=== PATIENT | female | born 1955 | race Caucasian/White ===

== ENCOUNTER → 2019-11-20 09:55 | Outpatient (CLI) | payer BC, SELFPAY ==
[2019-11-20 10:44] LABS: INR 1.61 (0.9-1.1); Prothrombin Time 16.1 seconds (9.4-11.8)
[2019-11-20 11:13] LABS: Chloride 105 mmol/L (98-107)
[2019-11-20 11:14] LABS: Potassium 4.5 mmoL/L (3.5-5.1); Sodium 143 mmol/L (136-145)
[2019-11-20 11:17] LABS: Anion Gap 16.5 mEq/L (5-15); Blood Urea Nitrogen 24 mg/dl (7-17); Carbon Dioxide 26 mmol/L (22.0-30.0); Estimated Glomerular Filt Rate 50 ml/min (>60); GFR (African American) 61 ML/MIN (>60); Glucose 127 mg/dl (74-100)
== END ==
PROVIDERS: Visit Provider Physician Assistant
DX: R07.89 Other chest pain (principal); R06.00 Dyspnea, unspecified; M79.602 Pain in left arm; Z86.73 Personal history of transient ischemic attack (TIA), and cerebral infarction without residual deficits
CPT/HCPCS: 36415; 80048; 85610

== ENCOUNTER 2019-11-24 14:56 | Outpatient (CLI) | payer BC, SELFPAY | END 2019-11-24 16:26 | disposition home or self-care (01) | LOC: ACC 14:59 | PROVIDERS: PCP Nurse Practitioner Family; Visit Provider Physician Assistant | DX: Z79.01 Long term (current) use of anticoagulants (principal); I48.0 Paroxysmal atrial fibrillation | CPT/HCPCS: 85610; 99211; G0463 ==

== ENCOUNTER 2019-11-30 13:39 | Outpatient (CLI) | payer BC, SELFPAY | END 2019-11-30 14:19 | disposition home or self-care (01) | LOC: ACC 13:40 | PROVIDERS: PCP Nurse Practitioner Family; Visit Provider Physician Assistant | DX: Z51.81 Encounter for therapeutic drug level monitoring (principal); Z79.01 Long term (current) use of anticoagulants | CPT/HCPCS: 85610; 99211; G0463 ==

== ENCOUNTER 2019-12-08 14:26 | Outpatient (CLI) | payer BC, SELFPAY ==
[2019-12-08 15:23] LABS: PHA INR Fingerstick 1.8 (0.9-1.1)
== END 2019-12-08 15:24 | disposition home or self-care (01) ==
LOC: ACC 14:27
PROVIDERS: PCP Nurse Practitioner Family; Visit Provider Physician Assistant
DX: Z51.81 Encounter for therapeutic drug level monitoring (principal); Z79.01 Long term (current) use of anticoagulants
CPT/HCPCS: 85610; 99211; G0463

== ENCOUNTER 2019-12-17 14:46 | Outpatient (CLI) | payer BC, SELFPAY ==
[2019-12-17 15:28] LABS: PHA INR Fingerstick 2.1 (0.9-1.1)
== END 2019-12-17 15:30 | disposition home or self-care (01) ==
LOC: ACC 14:47
PROVIDERS: PCP Nurse Practitioner Family; Visit Provider Physician Assistant
DX: Z51.81 Encounter for therapeutic drug level monitoring (principal); Z79.01 Long term (current) use of anticoagulants; I48.0 Paroxysmal atrial fibrillation
CPT/HCPCS: 85610; 99211; G0463

== ENCOUNTER → 2020-01-01 14:12 | Outpatient (CLI) | payer BC, SELFPAY ==
--- NOTE | 2020-01-01 14:34 | US_ITS ---
PROCEDURE: US KIDNEY CLINICAL INDICATION: HTN COMPARISON: No exams were available for comparison FINDINGS: The right kidney is [id number]. No hydronephrosis, cortical thinning, or renal mass or perinephric fluid collection is evident. The left kidney is [id number]. No hydronephrosis, cortical thinning, or renal mass or perinephric fluid collection is evident. IMPRESSION: Unremarkable bilateral renal ultrasound Dictated by: Milton Bennett MD 01/01/2020 16:21 Milton Bennett MD in [place] 01/01/2020 16:21
== END ==
PROVIDERS: PCP Nurse Practitioner Family; Visit Provider Urology
DX: Z51.81 Encounter for therapeutic drug level monitoring (principal); Z79.01 Long term (current) use of anticoagulants; I48.0 Paroxysmal atrial fibrillation
CPT/HCPCS: 76770

== ENCOUNTER → 2020-01-12 12:27 | Outpatient (CLI) | payer BC, SELFPAY ==
[2020-01-12 15:39] LABS: PHA INR Fingerstick 1.9 (0.9-1.1)
== END | disposition home or self-care (01) ==
PROVIDERS: PCP Nurse Practitioner Family; Visit Provider Physician Assistant
DX: Z51.81 Encounter for therapeutic drug level monitoring (principal); Z79.01 Long term (current) use of anticoagulants; I48.0 Paroxysmal atrial fibrillation
CPT/HCPCS: 85610; 99211; G0463

== ENCOUNTER → 2020-01-18 13:59 | Outpatient (CLI) | payer BC, SELFPAY ==
--- NOTE | 2020-01-18 14:09 | XR_ITS ---
PROCEDURE: XR MULTIPLE SPINE 4-5V CLINICAL INDICATION: MUSCULOSKELETAL BACK PAIN Midline back pain COMPARISON: No exams were available for comparison FINDINGS: There is mild thoracic curvature convex right. Degenerative changes are present in the midthoracic spine with mild endplate osteophyte formation. There is mild kyphosis. No acute fracture or dislocation. Mild lumbar scoliosis convex left. Other findings: No fracture or dislocation. There is mild degenerative disc disease at L1-L2 and L2-L3. IMPRESSION: Thoracolumbar scoliosis with degenerative changes Dictated by: Milton Bennett MD 01/18/2020 14:42 Milton Bennett MD in [place] 01/18/2020 14:42
== END ==
PROVIDERS: PCP Nurse Practitioner Family; Visit Provider Nurse Practitioner Family
DX: M54.6 Pain in thoracic spine (principal); M54.5 Low back pain
CPT/HCPCS: 72083

== ENCOUNTER 2020-02-02 13:50 | Outpatient (CLI) | payer BC, SELFPAY ==
[2020-02-02 14:54] LABS: PHA INR Fingerstick 2.2 (0.9-1.1)
== END 2020-02-02 14:57 | disposition home or self-care (01) ==
LOC: ACC 13:51
PROVIDERS: PCP Nurse Practitioner Family; Visit Provider Physician Assistant
DX: Z51.81 Encounter for therapeutic drug level monitoring (principal); Z79.01 Long term (current) use of anticoagulants; I48.0 Paroxysmal atrial fibrillation
CPT/HCPCS: 85610; 99211; G0463

== ENCOUNTER 2020-03-15 14:13 | Outpatient (CLI) | payer BC, SELFPAY ==
[2020-03-15 15:31] LABS: PHA INR Fingerstick 2.4 (0.9-1.1)
== END 2020-03-15 15:33 | disposition home or self-care (01) ==
LOC: ACC 14:14
PROVIDERS: PCP Nurse Practitioner Family; Visit Provider Physician Assistant
DX: Z51.81 Encounter for therapeutic drug level monitoring (principal); Z79.01 Long term (current) use of anticoagulants; I48.0 Paroxysmal atrial fibrillation
CPT/HCPCS: 85610; 99211; G0463

== ENCOUNTER 2020-05-10 14:03 | Outpatient (CLI) | payer BC, SELFPAY | END 2020-05-10 15:08 | disposition home or self-care (01) | PROVIDERS: PCP Nurse Practitioner Family; Visit Provider Physician Assistant | DX: Z51.81 Encounter for therapeutic drug level monitoring (principal); Z79.01 Long term (current) use of anticoagulants; I48.0 Paroxysmal atrial fibrillation | CPT/HCPCS: 85610; 99211; G0463 ==

== ENCOUNTER 2020-06-21 13:55 | Outpatient (CLI) | payer BC, SELFPAY ==
[2020-06-21 16:17] LABS: PHA INR Fingerstick 1.8 (0.9-1.1)
== END 2020-06-21 16:19 | disposition home or self-care (01) ==
LOC: ACC 13:56
PROVIDERS: PCP Nurse Practitioner Family; Visit Provider Physician Assistant
DX: Z51.81 Encounter for therapeutic drug level monitoring (principal); Z79.01 Long term (current) use of anticoagulants; I48.0 Paroxysmal atrial fibrillation
CPT/HCPCS: 85610; 99211; G0463

== ENCOUNTER 2020-07-12 13:24 | Outpatient (CLI) | payer BC, SELFPAY ==
[2020-07-12 14:48] LABS: PHA INR Fingerstick 2.1 (0.9-1.1)
== END 2020-07-12 15:04 | disposition home or self-care (01) ==
LOC: ACC 13:25
PROVIDERS: PCP Nurse Practitioner Family; Visit Provider Physician Assistant
DX: Z51.81 Encounter for therapeutic drug level monitoring (principal); Z79.01 Long term (current) use of anticoagulants; I48.0 Paroxysmal atrial fibrillation
CPT/HCPCS: 85610; 99211; G0463

== ENCOUNTER 2020-08-09 13:56 | Outpatient (CLI) | payer BC, SELFPAY ==
[2020-08-09 15:15] LABS: PHA INR Fingerstick 2.2 (0.9-1.1)
== END 2020-08-09 15:16 | disposition home or self-care (01) ==
LOC: ACC 13:57
PROVIDERS: PCP Nurse Practitioner Family; Visit Provider Physician Assistant
DX: Z51.81 Encounter for therapeutic drug level monitoring (principal); Z79.01 Long term (current) use of anticoagulants; I48.0 Paroxysmal atrial fibrillation
CPT/HCPCS: 85610; 99211; G0463

== ENCOUNTER 2020-09-20 13:51 | Outpatient (CLI) | payer BC, SELFPAY ==
[2020-09-20 16:00] LABS: PHA INR Fingerstick 1.9 (0.9-1.1)
== END 2020-09-20 16:32 | disposition home or self-care (01) ==
PROVIDERS: PCP Nurse Practitioner Family; Visit Provider Physician Assistant
DX: Z51.81 Encounter for therapeutic drug level monitoring (principal); Z79.01 Long term (current) use of anticoagulants; I48.0 Paroxysmal atrial fibrillation
CPT/HCPCS: 85610; 99211; G0463

== ENCOUNTER 2020-10-18 13:47 | Outpatient (CLI) | payer BC, SELFPAY ==
[2020-10-18 16:37] LABS: PHA INR Fingerstick 2.3 (0.9-1.1)
== END 2020-10-18 16:41 | disposition home or self-care (01) ==
LOC: ACC 13:48
PROVIDERS: PCP Nurse Practitioner Family; Visit Provider Physician Assistant
DX: Z51.81 Encounter for therapeutic drug level monitoring (principal); Z79.01 Long term (current) use of anticoagulants; I48.0 Paroxysmal atrial fibrillation
CPT/HCPCS: 85610; 99211; G0463

== ENCOUNTER 2020-11-23 14:21 | Outpatient (CLI) | payer BC, SELFPAY ==
[2020-11-23 16:08] LABS: PHA INR Fingerstick 1.8 (0.9-1.1)
== END 2020-11-23 16:02 | disposition home or self-care (01) ==
PROVIDERS: PCP Nurse Practitioner Family; Visit Provider Physician Assistant
DX: Z51.81 Encounter for therapeutic drug level monitoring (principal); Z79.01 Long term (current) use of anticoagulants; I48.0 Paroxysmal atrial fibrillation
CPT/HCPCS: 85610; 99211; G0463

== ENCOUNTER 2020-12-21 14:48 | Outpatient (CLI) | payer BC, SELFPAY ==
[2020-12-21 16:11] LABS: PHA INR Fingerstick 2.5 (0.9-1.1)
== END 2020-12-21 16:15 | disposition home or self-care (01) ==
LOC: ACC 14:49
PROVIDERS: PCP Nurse Practitioner Family; Visit Provider Physician Assistant
DX: Z51.81 Encounter for therapeutic drug level monitoring (principal); Z79.01 Long term (current) use of anticoagulants; I48.0 Paroxysmal atrial fibrillation
CPT/HCPCS: 85610; 99211; G0463

== ENCOUNTER 2021-02-02 14:56 | Outpatient (CLI) | payer BC, SELFPAY ==
[2021-02-02 15:32] LABS: PHA INR Fingerstick 1.9 (0.9-1.1)
== END 2021-02-02 15:33 | disposition home or self-care (01) ==
LOC: ACC 14:56
PROVIDERS: PCP Nurse Practitioner Family; Visit Provider Physician Assistant
DX: Z51.81 Encounter for therapeutic drug level monitoring (principal); Z79.01 Long term (current) use of anticoagulants; I48.0 Paroxysmal atrial fibrillation
CPT/HCPCS: 85610; 99211; G0463

== ENCOUNTER 2021-03-01 13:52 | Outpatient (CLI) | payer BC, SELFPAY ==
[2021-03-01 15:43] LABS: PHA INR Fingerstick 1.6 (0.9-1.1)
== END 2021-03-01 15:46 | disposition home or self-care (01) ==
LOC: ACC 13:54
PROVIDERS: PCP Nurse Practitioner Family; Visit Provider Physician Assistant
DX: Z51.81 Encounter for therapeutic drug level monitoring (principal); Z79.01 Long term (current) use of anticoagulants; I48.0 Paroxysmal atrial fibrillation
CPT/HCPCS: 85610; 99211; G0463

== ENCOUNTER 2021-03-28 14:52 | Outpatient (CLI) | payer BC, SELFPAY ==
[2021-03-28 15:22] LABS: PHA INR Fingerstick 2.1 (0.9-1.1)
== END 2021-03-28 15:27 | disposition home or self-care (01) ==
LOC: ACC 14:54
PROVIDERS: PCP Nurse Practitioner Family; Visit Provider Physician Assistant
DX: Z51.81 Encounter for therapeutic drug level monitoring (principal); Z79.01 Long term (current) use of anticoagulants; I48.0 Paroxysmal atrial fibrillation
CPT/HCPCS: 85610; 99211; G0463

== ENCOUNTER 2021-04-05 09:23 | Outpatient (CLI) | payer BC, SELFPAY ==
[2021-04-05 09:48] LABS: PHA INR Fingerstick 2.4 (0.9-1.1)
== END 2021-04-05 15:23 | disposition home or self-care (01) ==
LOC: ACC 09:25
PROVIDERS: PCP Nurse Practitioner Family; Visit Provider Physician Assistant
DX: Z51.81 Encounter for therapeutic drug level monitoring (principal); Z79.01 Long term (current) use of anticoagulants; I48.0 Paroxysmal atrial fibrillation
CPT/HCPCS: 85610; 99211; G0463

== ENCOUNTER 2021-04-25 15:17 | Outpatient (CLI) | payer BC, SELFPAY ==
[2021-04-25 16:45] LABS: PHA INR Fingerstick 2.3 (0.9-1.1)
== END 2021-04-25 16:44 | disposition home or self-care (01) ==
PROVIDERS: PCP Nurse Practitioner Family; Visit Provider Physician Assistant
DX: Z51.81 Encounter for therapeutic drug level monitoring (principal); Z79.01 Long term (current) use of anticoagulants; I48.0 Paroxysmal atrial fibrillation
CPT/HCPCS: 85610; 99211; G0463

== ENCOUNTER 2021-06-06 14:51 | Outpatient (CLI) | payer BC, SELFPAY | END 2021-06-06 15:43 | disposition home or self-care (01) | LOC: ACC 14:52 | PROVIDERS: PCP Nurse Practitioner Family; Visit Provider Physician Assistant | DX: Z51.81 Encounter for therapeutic drug level monitoring (principal); Z79.01 Long term (current) use of anticoagulants; I48.0 Paroxysmal atrial fibrillation | CPT/HCPCS: 85610; 99211; G0463 ==

== ENCOUNTER 2021-07-04 12:01 | Outpatient (CLI) | payer BC, SELFPAY ==
[2021-07-04 15:15] LABS: PHA INR Fingerstick 2.4 (0.9-1.1)
== END 2021-07-04 15:35 | disposition home or self-care (01) ==
LOC: ACC 12:02
PROVIDERS: PCP Nurse Practitioner Family; Visit Provider Physician Assistant
DX: Z51.81 Encounter for therapeutic drug level monitoring (principal); Z79.01 Long term (current) use of anticoagulants; I48.0 Paroxysmal atrial fibrillation
CPT/HCPCS: 85610; 99211; G0463

== ENCOUNTER → 2021-07-24 14:54 | Outpatient (CLI) | payer BC, SELFPAY ==
--- NOTE | 2021-07-24 15:05 | XR_ITS ---
FINAL REPORT CLINICAL HISTORY: DORSALGIA,UNSPECIFIED OTHER CHRONIC PAIN FINDINGS: AP, lateral, and oblique views of the lumbar spine were obtained. There is no acute fracture or acute malalignment. Vertebral body height is preserved. Multilevel degenerative disc disease is most pronounced at L2-L3. No acute paraspinal abnormality is identified. IMPRESSION: No acute osseous abnormality of the lumbar spine. Reviewed, Interpreted and Dictated by Helena Yuan MD Transcribed by Lazaro Lilly Authenticated by Helena Yuan MD on 07/24/2021 05:04:34 PM [facility]
--- NOTE | 2021-07-24 15:05 | XR_ITS ---
FINAL REPORT CLINICAL HISTORY: DORSALGIA, UNSPECIFIED OTHER CHRONIC PAIN FINDINGS: AP and lateral views of the thoracic spine were obtained. There is no prior exam for comparison. There is very mild dextroscoliosis. There is no acute fracture or acute malalignment. There is multilevel degenerative disc disease. The paraspinal soft tissues are normal. IMPRESSION: No acute osseous abnormality of the thoracic spine. Reviewed, Interpreted and Dictated by Helena Yuan MD Transcribed by Lazaro Lilly Authenticated by Helena Yuan MD on 07/24/2021 05:05:10 PM [facility]
== END ==
PROVIDERS: PCP Nurse Practitioner Family; Visit Provider Nurse Practitioner Family
DX: M54.6 Pain in thoracic spine (principal); M54.50 Low back pain, unspecified
CPT/HCPCS: 72070; 72110

== ENCOUNTER 2021-08-15 14:46 | Outpatient (CLI) | payer MEDICARE, SELFPAY ==
[2021-08-15 15:24] LABS: PHA INR Fingerstick 2.4 (0.9-1.1)
== END 2021-08-15 16:15 | disposition home or self-care (01) ==
LOC: ACC 14:48
PROVIDERS: PCP Nurse Practitioner Family; Visit Provider Physician Assistant
DX: Z51.81 Encounter for therapeutic drug level monitoring (principal); Z79.01 Long term (current) use of anticoagulants; I48.0 Paroxysmal atrial fibrillation
CPT/HCPCS: 85610; 99211; G0463

== ENCOUNTER 2021-09-26 14:44 | Outpatient (CLI) | payer MEDICARE, SELFPAY ==
[2021-09-26 16:13] LABS: PHA INR Fingerstick 2.6 (0.9-1.1)
== END 2021-09-26 16:15 | disposition home or self-care (01) ==
LOC: ACC 14:45
PROVIDERS: Visit Provider Physician Assistant
DX: Z51.81 Encounter for therapeutic drug level monitoring (principal); Z79.01 Long term (current) use of anticoagulants; I48.0 Paroxysmal atrial fibrillation
CPT/HCPCS: 85610; 99211; G0463

== ENCOUNTER 2021-11-07 14:43 | Outpatient (CLI) | payer MEDICARE, SELFPAY ==
[2021-11-07 15:13] LABS: PHA INR Fingerstick 2.7 (0.9-1.1)
== END 2021-11-07 15:15 ==
LOC: ACC 14:44
PROVIDERS: PCP Family Medicine; Visit Provider Physician Assistant
DX: Z51.81 Encounter for therapeutic drug level monitoring (principal); Z79.01 Long term (current) use of anticoagulants; I48.0 Paroxysmal atrial fibrillation
CPT/HCPCS: 85610; 99211; G0463

== ENCOUNTER → 2021-12-13 12:01 | Outpatient (CLI) | payer MEDICARE, SELFPAY ==
[2021-12-13 19:58] LABS: Basophils # 0.1 K/mm3 (0-0.2); Basophils % 0.9 % (0.1-2.0); Eosinophils # 0.3 K/mm3 (0.0-0.4); Eosinophils % 4.5 % (0.1-12.0); Hematocrit 36.4 % (37.0-47.0); Hemoglobin 11.5 g/dL (12.2-16.2); Lymphocytes # 2.3 K/mm3 (0.7-4.5); Lymphocytes % 32.3 % (10-50); Mean Corpuscular HGB Conc 31.8 g/dL (31.8-35.4); Mean Corpuscular Hemoglobin 25.4 pg (27.0-31.2); Mean Corpuscular Volume 79.9 fl (81-99); Mean Platelet Volume 8.4 fl (7.4-10.4); Monocytes # 0.4 K/mm3 (0.1-1.0); Monocytes % 5.2 % (1.7-9.3); Neutrophils # 4.1 K/mm3 (1.8-7.8); Neutrophils % 57.1 % (37.0-80.0); Platelet Count 535 K/mm3 (142-424); Red Blood Count 4.55 M/mm3 (4.20-5.40); Red Cell Distribution Width 16.8 % (11.5-17.5); White Blood Count 7.2 K/mm3 (4.8-10.8)
[2021-12-13 20:02] LABS: Alanine Aminotransferase 39 U/L (12-78); Albumin/Globulin Ratio 1.3 (1.1-1.8); Alkaline Phosphatase 127 U/L (38-126); Anion Gap 16.3 mEq/L (5-15); Aspartate Amino Transferase 42 U/L (14-36); Bilirubin,Total 0.2 mg/dl (0.2-1.3); Blood Urea Nitrogen 20 mg/dl (7-17); Calcium 9.1 mg/dl (8.4-10.2); Carbon Dioxide 23 mmol/L (22.0-30.0); Chloride 104 mmol/L (98-107); Cholesterol 225 mg/dl (140-200); Estimated Glomerular Filt Rate 56 ml/min (>60); GFR (African American) 67 ML/MIN (>60); Globulin 3.1 g/dL (1.3-3.2); Glucose 121 mg/dl (74-100); HDL Cholesterol 32 mg/dl (40-60); Potassium 4.3 mmoL/L (3.5-5.1); Sodium 139 mmol/L (136-145); Total Protein,Serum 7.1 g/dl (6.3-8.2); Triglycerides 305 mg/dl (30-150); VLDL Cholesterol 61 mg/dL (0-40)
[2021-12-13 20:17] LABS: 25-OH Vitamin D, Total 26.7 ng/mL (30-100)
[2021-12-13 20:18] LABS: Direct LDL Cholesterol 145.48 mg/dL (100-129)
[2021-12-13 20:26] LABS: Microalbumin/Creatinine Ratio 32.9
[2021-12-13 20:32] LABS: Thyroid Stimulating Hormone 0.62 uIU/mL (0.465-4.68)
[2021-12-13 20:35] LABS: Creatinine,Urine Random 82 mg/dL (Not Estab.)
[2021-12-13 20:59] LABS: Iron 89 ug/dL (37-170)
[2021-12-13 21:08] LABS: Total Iron Binding Capacity 597 ug/dL (265-497)
[2021-12-13 21:25] LABS: Hemoglobin A1C 6.5 % (4.0-6.0)
== END ==
PROVIDERS: PCP Family Medicine; Visit Provider Family Medicine
DX: E11.9 Type 2 diabetes mellitus without complications (principal); R53.83 Other fatigue; E55.9 Vitamin D deficiency, unspecified; I10 Essential (primary) hypertension; Z00.00 Encounter for general adult medical examination without abnormal findings
CPT/HCPCS: 80053; 80061; 82043; 82306; 82570; 83036; 83540; 83550; 84443; 85025

== ENCOUNTER 2021-12-19 14:44 | Outpatient (CLI) | payer MEDICARE, SELFPAY ==
[2021-12-20 11:00] LABS: PHA INR Fingerstick 2.4 (0.9-1.1)
== END 2021-12-20 11:03 ==
LOC: ACC 14:46
PROVIDERS: PCP Family Medicine; Visit Provider Physician Assistant
DX: Z51.81 Encounter for therapeutic drug level monitoring (principal); Z79.01 Long term (current) use of anticoagulants; I48.0 Paroxysmal atrial fibrillation
CPT/HCPCS: 85610; 99211; G0463

== ENCOUNTER 2022-01-30 14:45 | Outpatient (CLI) | payer MEDICARE, SELFPAY ==
[2022-01-30 15:37] LABS: PHA INR Fingerstick 2.4 (0.9-1.1)
== END 2022-01-30 15:39 ==
LOC: ACC 14:46
PROVIDERS: PCP Family Medicine; Visit Provider Physician Assistant
DX: Z51.81 Encounter for therapeutic drug level monitoring (principal); Z79.01 Long term (current) use of anticoagulants; I48.0 Paroxysmal atrial fibrillation
CPT/HCPCS: 85610; 99211; G0463

== ENCOUNTER 2022-03-14 14:52 | Outpatient (CLI) | payer MEDICARE, SELFPAY ==
[2022-03-14 15:48] LABS: PHA INR Fingerstick 2.3 (0.9-1.1)
== END 2022-03-14 15:56 ==
LOC: ACC 14:53
PROVIDERS: PCP Family Medicine; Visit Provider Physician Assistant
DX: Z51.81 Encounter for therapeutic drug level monitoring (principal); Z79.01 Long term (current) use of anticoagulants
CPT/HCPCS: 85610; 99211; G0463

== ENCOUNTER → 2022-04-02 06:48 | Outpatient (CLI) | payer MEDICARE, SELFPAY ==
[2022-04-02 17:14] LABS: Hemoglobin A1C 6.5 % (4.0-6.0)
[2022-04-02 17:40] LABS: Creatinine,Urine Random 45 mg/dL (Not Estab.)
[2022-04-02 17:49] LABS: Microalbumin < 6.000 mg/L (0-16.7)
== END ==
PROVIDERS: PCP Family Medicine; Visit Provider Family Medicine
DX: E11.9 Type 2 diabetes mellitus without complications (principal); Z79.84 Long term (current) use of oral hypoglycemic drugs
CPT/HCPCS: 82043; 82570; 83036

== ENCOUNTER 2022-04-25 14:43 | Outpatient (CLI) | payer MEDICARE, SELFPAY | END 2022-04-25 15:29 | LOC: ACC 14:45 | PROVIDERS: PCP Family Medicine; Visit Provider Physician Assistant | DX: Z51.81 Encounter for therapeutic drug level monitoring (principal); Z79.01 Long term (current) use of anticoagulants; I48.0 Paroxysmal atrial fibrillation | CPT/HCPCS: 85610; 99211; G0463 ==

== ENCOUNTER 2022-06-13 14:50 | Outpatient (CLI) | payer MEDICARE, SELFPAY ==
[2022-06-13 15:28] LABS: PHA INR Fingerstick 2.4 (0.9-1.1)
== END 2022-06-13 15:40 ==
LOC: ACC 14:50
PROVIDERS: PCP Family Medicine; Visit Provider Physician Assistant
DX: Z51.81 Encounter for therapeutic drug level monitoring (principal); Z79.01 Long term (current) use of anticoagulants; I48.0 Paroxysmal atrial fibrillation
CPT/HCPCS: 85610; 99211; G0463

== ENCOUNTER 2022-07-25 14:45 | Outpatient (CLI) | payer MEDICARE, SELFPAY ==
[2022-07-25 15:03] LABS: PHA INR Fingerstick 2.8 (0.9-1.1)
== END 2022-07-25 15:04 ==
LOC: ACC 14:46
PROVIDERS: PCP Family Medicine; Visit Provider Physician Assistant
DX: Z51.81 Encounter for therapeutic drug level monitoring (principal); Z79.01 Long term (current) use of anticoagulants; I48.0 Paroxysmal atrial fibrillation
CPT/HCPCS: 85610; 99211; G0463

== ENCOUNTER → 2022-08-08 09:15 | Outpatient (CLI) | payer MEDICARE, SELFPAY ==
[2022-08-08 17:40] LABS: Basophils % 0.4 % (0.1-2.0); Eosinophils # 0.3 K/mm3 (0.0-0.4); Eosinophils % 3.6 % (0.1-12.0); Hematocrit 42.2 % (37.0-47.0); Hemoglobin 13.7 g/dL (12.2-16.2); Lymphocytes % 26.5 % (10-50); Mean Corpuscular HGB Conc 32.4 g/dL (31.8-35.4); Mean Corpuscular Hemoglobin 29.7 pg (27.0-31.2); Mean Corpuscular Volume 91.8 fl (81-99); Mean Platelet Volume 9.1 fl (7.4-10.4); Monocytes # 0.4 K/mm3 (0.1-1.0); Monocytes % 4.8 % (1.7-9.3); Neutrophils # 4.9 K/mm3 (1.8-7.8); Neutrophils % 64.7 % (37.0-80.0); Platelet Count 434 K/mm3 (142-424); Red Cell Distribution Width 14.2 % (11.5-17.5); White Blood Count 7.5 K/mm3 (4.8-10.8)
[2022-08-08 18:15] LABS: Alanine Aminotransferase 30 U/L (12-78); Albumin Level 4.2 g/dl (3.5-5.0); Albumin/Globulin Ratio 1.4 (1.1-1.8); Alkaline Phosphatase 92 U/L (38-126); Anion Gap 16.6 mEq/L (5-15); Aspartate Amino Transferase 37 U/L (14-36); Bilirubin,Total 0.2 mg/dl (0.2-1.3); Blood Urea Nitrogen 26 mg/dl (7-17); Calcium 9.3 mg/dl (8.4-10.2); Carbon Dioxide 24 mmol/L (22.0-30.0); Chloride 105 mmol/L (98-107); Chol/HDL Ratio 8.2 (1-3.5); Cholesterol 246 mg/dl (140-200); Estimated Glomerular Filt Rate 56 ml/min (>60); GFR (African American) 67 ML/MIN (>60); Globulin 3.1 g/dL (1.3-3.2); Glucose 110 mg/dl (74-100); HDL Cholesterol 30 mg/dl (40-60); Potassium 4.6 mmoL/L (3.5-5.1); Sodium 141 mmol/L (136-145); Total Protein,Serum 7.3 g/dl (6.3-8.2); Triglycerides 379 mg/dl (30-150); VLDL Cholesterol 76 mg/dL (0-40)
[2022-08-08 18:27] LABS: Direct LDL Cholesterol 142.37 mg/dL (100-129)
[2022-08-08 18:46] LABS: Thyroid Stimulating Hormone 1.56 uIU/mL (0.465-4.68)
[2022-08-08 19:00] LABS: Hemoglobin A1C 5.8 % (4.0-6.0)
[2022-08-08 20:33] LABS: Microalbumin/Creatinine Ratio 11.6
[2022-08-08 20:43] LABS: Creatinine,Urine Random 59 mg/dL (Not Estab.)
== END ==
PROVIDERS: PCP Family Medicine; Visit Provider Family Medicine
DX: E11.9 Type 2 diabetes mellitus without complications (principal); D64.9 Anemia, unspecified; E78.2 Mixed hyperlipidemia; I10 Essential (primary) hypertension
CPT/HCPCS: 80053; 80061; 82043; 82570; 83036; 84443; 85025

== ENCOUNTER 2022-09-05 14:59 | Outpatient (CLI) | payer MEDICARE, SELFPAY ==
[2022-09-05 16:02] LABS: PHA INR Fingerstick 2.5 (0.9-1.1)
== END 2022-09-05 16:08 ==
LOC: ACC 15:00
PROVIDERS: PCP Family Medicine; Visit Provider Physician Assistant
DX: Z79.01 Long term (current) use of anticoagulants (principal); Z51.81 Encounter for therapeutic drug level monitoring; I48.0 Paroxysmal atrial fibrillation
CPT/HCPCS: 85610; 99211; G0463

== ENCOUNTER 2022-10-17 14:52 | Outpatient (CLI) | payer MEDICARE, SELFPAY ==
[2022-10-17 15:29] LABS: PHA INR Fingerstick 2.7 (0.9-1.1)
== END 2022-10-17 15:32 ==
LOC: ACC 14:53
PROVIDERS: PCP Family Medicine; Visit Provider Physician Assistant
DX: Z79.01 Long term (current) use of anticoagulants (principal); Z51.81 Encounter for therapeutic drug level monitoring; I48.0 Paroxysmal atrial fibrillation
CPT/HCPCS: 85610; 99211; G0463

== ENCOUNTER 2022-11-28 14:54 | Outpatient (CLI) | payer MEDICARE, SELFPAY ==
[2022-11-28 16:12] LABS: PHA INR Fingerstick 2.6 (0.9-1.1)
== END 2022-11-28 16:17 ==
LOC: ACC 14:55
PROVIDERS: PCP Family Medicine; Visit Provider Physician Assistant
DX: Z79.01 Long term (current) use of anticoagulants (principal); Z51.81 Encounter for therapeutic drug level monitoring; I48.0 Paroxysmal atrial fibrillation
CPT/HCPCS: 85610; 99211; G0463

== ENCOUNTER → 2022-12-04 13:23 | Outpatient (CLI) | payer MEDICARE, SELFPAY ==
--- NOTE | 2022-12-04 13:29 | XR_ITS ---
FINAL REPORT CLINICAL HISTORY: Rt shoulder pain FINDINGS: 3 views of the right shoulder were obtained. There is no acute fracture or dislocation. There is mild AC joint degenerative change. There are no soft tissue abnormalities. IMPRESSION: No acute process. Reviewed, Interpreted and Dictated by Ivan Mcrae III, MD Transcribed by Lazaro Lilly Authenticated and [facility]
== END ==
PROVIDERS: PCP Family Medicine; Visit Provider Orthopaedic Surgery
DX: M25.511 Pain in right shoulder (principal)
CPT/HCPCS: 73030

== ENCOUNTER → 2022-12-21 13:40 | Outpatient (CLI) | payer MEDICARE, SELFPAY ==
--- NOTE | 2022-12-21 13:40 | MR_ITS ---
FINAL REPORT CLINICAL HISTORY: Rt Shoulder Pain. LIMITED ROM. WEAKNESS IN ARM. SYMPTOMS [id number] FINDINGS: Multiplanar MR imaging of the right shoulder was performed without contrast. Motion artifact is identified on all of the images. There is a focal full-thickness tear at the anterior footprint of the supraspinatus tendon measuring 7 mm in AP dimension. There is mild AC joint arthrosis. A small amount of fluid is seen in the subacromial/subdeltoid bursa. The glenoid labrum is intact. The long head of the biceps tendon is intact. Small glenohumeral joint effusion is seen. There is no evidence of fracture or dislocation. The musculature is intact. There is no evidence of soft tissue mass. IMPRESSION: Focal full-thickness tear of the supraspinatus tendon. Reviewed, Interpreted and Dictated by Ivan Mcrae III, MD Transcribed by Padmini Patricio Authenticated and [facility]
== END ==
PROVIDERS: PCP Family Medicine; Visit Provider Orthopaedic Surgery
DX: M25.511 Pain in right shoulder (principal)
CPT/HCPCS: 73221

== ENCOUNTER 2023-01-09 14:42 | Outpatient (CLI) | payer MEDICARE, SELFPAY ==
[2023-01-09 15:03] LABS: PHA INR Fingerstick 2.6 (0.9-1.1)
== END 2023-01-09 15:07 ==
LOC: ACC 14:43
PROVIDERS: PCP Family Medicine; Visit Provider Physician Assistant
DX: Z79.01 Long term (current) use of anticoagulants (principal); Z51.81 Encounter for therapeutic drug level monitoring; I48.0 Paroxysmal atrial fibrillation
CPT/HCPCS: 85610; 99211; G0463

== ENCOUNTER → 2023-01-16 06:49 | Outpatient (CLI) | payer MEDICARE, SELFPAY ==
[2023-01-16] VITALS (12 sets, daily range): BP systolic 121–179; BP diastolic 58–100; PULSE 63–76; RESP 17–19; TEMP 36.6; O2SAT 95–99; BMI 26.4
--- NOTE | 2023-01-16 06:50 | CT_ITS ---
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 A noncontrast coronary calcium scan was performed. A CT attenuation threshold of 130 Hounsfield units (HU) was used for the detection of calcium in contiguous voxels of 1 sq mm in area to be counted as individual lesions. Bolus tracking in the ascending aorta with a threshold of 180 HU was performed. Immediately afterwards, ECG synchronized cardiac CT was then performed from the cardiac base to apex using retrospective gating with ECG tube current modulation. A total of 85 mL of Isovue 370 mg/mL contrast medium was administered at 5 mL/sec followed by a saline flush using a biphasic injection protocol. A tube voltage of 120 KVp was used. The patient received the following medications prior to the cardiac CT. 100 mg of oral metoprolol 10 mg of intravenous metoprolol 0.8 mg of sublingual nitroglycerin The average heart rate at the time of acquisition was 64 bpm and regular. Image Reconstruction Transaxial images were reconstructed at 0.67 mm slide thickness. Data was reviewed interactively on an advanced workstation capable of 2 and 3-dimensional displays in all conventional reconstruction formats, including multiplanar reformations, maximum intensity projections, curved multiplanar reformations, and volume rendered reconstructions. When applicable, selected routine images describing the relevant coronary anatomy and pathology were saved and sent to PACS. Complications None Technical Quality Overall image quality was good. Coronary artery opacification was adequate. Total DLP (Dose-Length Product) is 1275.6 mGy-cm. The reported value represents the total of one or more individual components during the CT acquisition of this date and at this time, and as such, the same value may appear in more than one CT report depending on the interpreting/reporting physicians. COMPARISON None FINDINGS CT Coronary Calcium Scoring LMA (Left Main Artery) = 78 LAD (Left Anterior Descending) = 0 LCX (Left Coronary Circumflex) = 51 RCA (Right Coronary Artery) = 42 Total Calcium Score = 170 using the AJ-130 method. The observed calcium score of 170 is at 86th percentile for subjects of the same age, sex, and race/ethnicity. The interpretation of the calcium heart score is based on the following continuum*: 0 = no calcified plaque detected (risk of coronary artery disease is very low ??? less than 5%) 1-10 = calcium detected in extremely minimal levels (risk of coronary diseases is still low ??? less than 10%) 11-100 = mild levels of plaque detected with certainty (mild or minimal narrowing of heart arteries is likely) 101-400 = definite,at least moderate levels of plaque detected (relatively high risk of a heart attack within 3-5 years) >401-999 = extensive levels of plaque detected (high risk of heart attack, high levels of vascular disease are present, high likelihood of at least one significant coronary narrowing) *The calcium heart score quantifies the burden of coronary calcification/plaque in the coronary arteries. The calcium heart score is not able to evaluate the presence or burden of non-calcified (i.e. soft) plaque. There is calcification in the ascending and descending aorta, as well as the aortic valve and mitral valve annulus. Coronary CT Angiography Coronaries have normal origin and proximal course. The coronary arterial system is right dominant. Note: Stenosis is reported as maximum percentage diameter stenosis. Quantitative Stenosis Grading: Left Main (LM): The left main originates normally from the left sinus of Valsalva. The LM bifurcates into the left anterior descending artery and left circumflex artery. There is calcification in the proximal LM, but no evidence of significant luminal narrowing. Left Anterior Descending (LAD) and Diagonal Branches: The LAD gives off 3 diagonal branch(es). There is mild non-calcified narrowing along the LAD and its branches, but overall no significant narrowing. There There is no evidence of LAD bridge. Left Circumflex (LCX) and Obtuse Marginals (OM): The LCX gives off Obtuse Marginal (OM) branches. The LCX is patent. There is calcification in the OM1, but no evidence of significant luminal narrowing. Right Coronary Artery (RCA): The RCA originates normally from the right sinus of Valsalva. The RCA gives off a posterior descending artery (PDA) and posterolateral (PL) branches. There is calcification in the proximal RCA but no evidence of luminal narrowing. Non-Coronary Cardiac Findings: Analysis of the left ventricular (LV) structure and function was performed after 3-D reconstruction of the LV from axial images, with user-corrected automatic contouring for assessment of LV volumes and user-defined reconstruction from oblique planes for measurement of 3-D cardiac structure and function. LVEDV: 147 mL LVESV: 53 mL SV: 94 mL LVEF: 63.8 % -The left ventricle is normal in size with normal left ventricular systolic function. -There is no left atrial appendage filling defect. Two right pulmonary veins and two left pulmonary veins drain normally into the left atrium. -No pericardial thickening or calcification. -Central and branch pulmonary arteries in the [id number] are unremarkable. -Thoracic aorta within the visualized thoracic aortic-branches in the [id number] is unremarkable. Extracardiac Structures No significant extra-cardiac findings. IMPRESSION -Severe coronary calcification with an Agatston score = 170 using the AJ-130 method. -The observed calcium score of 170 is at 86th percentile for subjects of the same age, sex, and race/ethnicity. -Calcification in the coronary arteries, but no evidence of significant luminal stenosis. -CAD-RADS 2. Management recommendations per ACC/AHA guidelines*, as clinically appropriate. -No significant non-coronary cardiac findings in the visualized segments of the chest. *Recommendations: CAD RADS 0: Reassurance. Consider non-atherosclerotic causes of chest pain. CAD RADS 1: Consider non-atherosclerotic causes of chest pain. Consider preventive therapy and risk factor modification. CAD RADS 2: Consider non-atherosclerotic causes of chest pain. Consider preventive therapy and risk factor modification, particularly for patients with nonobstructive plaque in multiple segments. CAD RADS 3: Consider further functional testing. Consider symptom-guided anti-ischemic and preventive pharmacotherapy as well as risk factor modification per published guideline statements. CAD RADS 4A: Consider further functional testing or invasive coronary angiography with revascularization per published guideline statements. Consider symptom-guided anti-ischemic and preventive pharmacotherapy as well as risk factor modification per published guideline statements. CAD RADS 4B: Invasive coronary angiography recommended with revascularization per published guideline statements. Consider symptom-guided anti-ischemic and preventive pharmacotherapy as well as risk factor modification per published guideline statements. CAD RADS 5: Consider invasive angiography and/or viability assessment with revascularization per published guideline statements. Consider symptom-guided anti-ischemic and preventive pharmacotherapy as well as risk factor modification per published guideline statements. CRITICAL RESULT None COMMUNICATION Per this written report The coronary and cardiac findings of this CCTA were reviewed, reported, and signed by Serafin Arndt MD (Cannery Worker) Conclusion Electronically signed by : Priti Arndt MD 01/17/2023 12:34:55
[2023-01-16] MEDS: METOPROLOL TARTRATE 50MG TABLET 100 MG PO (07:41)
[2023-01-16 08:15] LABS: Anion Gap 16.3 mEq/L (5-15); Blood Urea Nitrogen 25 mg/dl (7-17); Calcium 9.7 mg/dl (8.4-10.2); Carbon Dioxide 20 mmol/L (22.0-30.0); Chloride 107 mmol/L (98-107); Creatinine Clearance Estimated 65 mL/min (50-200); Estimated Glomerular Filt Rate 63 ml/min (>60); GFR (African American) 76 ML/MIN (>60); Glucose 129 mg/dl (74-100); Potassium 4.3 mmoL/L (3.5-5.1); Sodium 139 mmol/L (136-145)
[2023-01-16] MEDS: METOPROLOL TARTRATE 5MG/5ML VIAL 5 MG IV ×2 (08:57→09:12)
[2023-01-16] MEDS: NITROGLYCERIN 0.4MG SL TABLET 0.800000000000000044 MG SL (09:06)
[2023-01-16] MEDS: 0.9 % SODIUM CHLORIDE 50 ML VIAL IV (09:58)
[2023-01-16] MEDS: SODIUM CHLORIDE 0.9% 10ML SYR (RAD ONLY) 10 ML IV (09:58)
[2023-01-16] MEDS: IOPAMIDOL-370 (76%);100ML BOTTLE 85 ML IV (09:58)
== END | disposition home or self-care (01) ==
PROVIDERS: PCP Family Medicine; Visit Provider Physician Assistant
DX: E11.9 Type 2 diabetes mellitus without complications (principal); E78.5 Hyperlipidemia, unspecified; I10 Essential (primary) hypertension; I48.0 Paroxysmal atrial fibrillation; Z01.810 Encounter for preprocedural cardiovascular examination; Z79.01 Long term (current) use of anticoagulants; Z86.73 Personal history of transient ischemic attack (TIA), and cerebral infarction without residual deficits; R07.9 Chest pain, unspecified
CPT/HCPCS: 75571; 75574; 80048; Q9967

== ENCOUNTER 2023-02-20 14:44 | Outpatient (CLI) | payer MEDICARE, SELFPAY ==
[2023-02-20 15:45] LABS: PHA INR Fingerstick 2.1 (0.9-1.1)
== END 2023-02-20 16:29 ==
LOC: ACC 14:46
PROVIDERS: PCP Family Medicine; Visit Provider Physician Assistant
DX: Z79.01 Long term (current) use of anticoagulants (principal); Z51.81 Encounter for therapeutic drug level monitoring; I48.0 Paroxysmal atrial fibrillation
CPT/HCPCS: 85610; 99211; G0463

== ENCOUNTER 2023-03-05 13:50 | Outpatient (CLI) | payer MEDICARE, SELFPAY ==
--- NOTE | 2023-03-05 14:05 | XR_ITS ---
FINAL REPORT CLINICAL HISTORY: Pre Op, cough, soa, smoker x 40 years COMPARISON: None FINDINGS: Two views of the chest were obtained. An implanted loop recording device is present over the anterior chest wall. The heart size and pulmonary vascularity are within normal limits. The mediastinum is normal. No acute pulmonary abnormality is identified. There is mild atelectasis versus scar present in the right lung base. There is no pneumothorax. The bony thorax is intact. IMPRESSION: No active cardiopulmonary disease. Right base mild atelectasis versus scar. Reviewed, Interpreted and Dictated by Ivan Mcrae III, MD Transcribed by Tanna Gamez Authenticated and . [facility]
[2023-03-05 14:12] LABS: Basophils # 0.1 K/mm3 (0-0.2); Basophils % 0.9 % (0.1-2.0); Eosinophils # 0.3 K/mm3 (0.0-0.4); Eosinophils % 3.4 % (0.1-12.0); Hematocrit 42.5 % (37.0-47.0); Lymphocytes # 2.6 K/mm3 (0.7-4.5); Lymphocytes % 28.6 % (10-50); Mean Corpuscular Hemoglobin 30.6 pg (27.0-31.2); Mean Corpuscular Volume 92.9 fl (81-99); Monocytes # 0.4 K/mm3 (0.1-1.0); Monocytes % 4.4 % (1.7-9.3); Neutrophils # 5.7 K/mm3 (1.8-7.8); Neutrophils % 62.8 % (37.0-80.0); Platelet Count 386 K/mm3 (142-424); Red Blood Count 4.58 M/mm3 (4.20-5.40); Red Cell Distribution Width 13.5 % (11.5-17.5); White Blood Count 9.1 K/mm3 (4.8-10.8)
[2023-03-05 14:36] LABS: Chloride 108 mmol/L (98-107); Potassium 4.5 mmoL/L (3.5-5.1); Sodium 141 mmol/L (136-145)
[2023-03-05 14:39] LABS: Alanine Aminotransferase 48 U/L (12-78); Albumin Level 4.4 g/dl (3.5-5.0); Albumin/Globulin Ratio 1.4 (1.1-1.8); Alkaline Phosphatase 81 U/L (38-126); Anion Gap 15.5 mEq/L (5-15); Aspartate Amino Transferase 47 U/L (14-36); Bilirubin,Total 0.4 mg/dl (0.2-1.3); Blood Urea Nitrogen 25 mg/dl (7-17); Calcium 9.3 mg/dl (8.4-10.2); Carbon Dioxide 22 mmol/L (22.0-30.0); Estimated Glomerular Filt Rate 63 ml/min (>60); GFR (African American) 76 ML/MIN (>60); Globulin 3.1 g/dL (1.3-3.2); Glucose 122 mg/dl (74-100); Total Protein,Serum 7.5 g/dl (6.3-8.2)
== END 2023-03-05 23:59 ==
PROVIDERS: PCP Family Medicine; Visit Provider Orthopaedic Surgery
DX: R07.89 Other chest pain (principal); M75.121 Complete rotator cuff tear or rupture of right shoulder, not specified as traumatic
CPT/HCPCS: 36415; 71046; 80053; 85025

== ENCOUNTER 2023-03-08 07:25 | Day surgery (SDC) | payer MEDICARE, SELFPAY ==
[2023-03-06 09:31] VITALS: BMI 25.8
[2023-03-08] VITALS (13 sets, daily range): BP systolic 86–140; BP diastolic 48–76; PULSE 55–78; RESP 12–18; TEMP 36.1–36.4; O2SAT 92–96
[2023-03-08] MEDS: LACTATED RINGERS 1000ML 1,000 ML 25 ML IV (07:42)
[2023-03-08 08:04] LABS: POC Glucose,Bedside 120 (70-110)
[2023-03-08] MEDS: CLINDAMYCIN PHOSPHATE 900 MG in 0.9 % SODIUM CHLORIDE 50 ML 100 MG IV (08:45)
[2023-03-08] MEDS: EPINEPHrine 1 MG/ML AMPUL 2 MG (09:06)
[2023-03-08] MEDS: SODIUM CHLORIDE IRRIG SOLUTION 6,000 ML 100 ML IR (09:06)
--- NOTE | 2023-03-08 09:14 | P.PNANES_ITS ---
[facility] Disclaimer: The information contained in this section may have been updated after the patient was seen, as this information can be updated by other users. Medical History Chest pain Dyspnea Gastroesophageal reflux disease History of CVA (cerebrovascular accident) Hx-TIA (transient ischemic attack) Left arm pain Nausea Surgical History (Updated 03/08/23 @ 07:45 by Kayla Law RN) H/O shoulder surgery History of extraction of renal calculus Family History Mother Hypertension Stroke Grandmother Diabetes Grandfather Coronary artery disease Heart attack Father Heart attack Social History Smoking Status: Current every day smoker tobacco type: cigarettes packs per day: 1 alcohol intake: never substance use type: denies use current occupational status: retired Travel in the last 8 weeks: None household members: none housing: house [facility] Anesthesia Checklist Patient Identification Patient Identification: Verbal (Name & ) Structural Data Admitted From: Home Planned Operative Procedure/s: r shoulder arthro Consent for Planned Operative Procedure(s) Verified: Yes NPO Status Verified Time NPO: 00:00 Additional verifications Anesthesia Reactions: No Hx Blood Transfusions: No Blood Transfusion Reaction: No Airway Assessment Mallampati Score:: Class II C-Spine Mobility Assessed: Yes TMJ Mobility Assessed: Yes Dentition: Good Dentition Neurological Assessment Level of Consciousness: Awake, Alert and Appropriate Anesthesia Plan Anesthesia Risk discussed: Yes Anesthesia Plan: Verified ASA Class: III Anesthesia Type: General w/block Preoperative Comments Pre-Operative Comments: is block exp to pt incl risks pt agrees to proceed
--- NOTE | 2023-03-08 09:48 | EXP.OP.NOTE ---
Date of procedure: 03/08/23 Pre-op Diagnosis:: Right shoulder rotator cuff tear with impingement Post-op Diagnosis:: Right shoulder partial-thickness rotator cuff tear Right shoulder adhesive capsulitis Right shoulder subacromial bursitis with impingement Procedure performed:: Right shoulder arthroscopy with extensive debridement partial-thickness rotator cuff tear/ subacromial bursa/posterior labrum Right shoulder manipulation under anesthesia Surgeon:: Stanley Goff DO CO FOUNDER AND DIRECTOR:: Srikanth Payne Anesthesia: GETA and regional Estimated blood loss (mL): 10 Operative findings:: Upon positioning the patient there is severe lack of range of motion in regards to passive forward flexion abduction internal rotation Partial-thickness rotator cuff tear Severe subacromial bursitis Mild fraying posterior labrum Operative note:: Patient was identified preoperatively. Right shoulder marked with yes my initials. Underwent a block with anesthesia. Then taken the operating room placed upon the operating bed. General anesthesia ministered airway secured. Then placed in a lateral position with a beanbag with all bony prominences well-padded and axillary roll placed. Right arm was then prepped and draped within the arm mark. Once prepped and draped final operative timeout performed to identify proper patient procedure and extremity. Everyone involved the case agreed. There were no counter indications to beginning. She did receive preoperative antibiotics. Marking pen was used to darvin bony landmarks of the shoulder and standard portal sites. Skin knife was used incise posterior viewing portal blunt with trocar was placed in the glenohumeral joint which was quite tight. Tensions brought anteriorly above the subscapularis tendon where the anterior working portal was made and exchanged with a purple cannula. Within the anterior articular aspect of the shoulder there was severe thickening of the anterior capsule this was debrided with a sucker shaver. There is evidence of mild fraying of the posterior labrum impinging on the humeral head which was debrided with the sucker shaver. Biceps tendon was intact. Undersurface of the rotator cuff was intact. Attention is then brought the subacromial space. Within the subacromial space there was severe bursitis. This was debrided with a sucker shaver. There is extensive subacromial bursa debridement performed. I evaluated the rotator cuff there was no full-thickness tearing of the rotator cuff only partial tearing so debridement of the rotator cuff was performed. Camera was then removed the joint was drained. Skin closed with nylon stitch sterile dressing placed patient patient in a sling awakened from surgery taken recovery in stable condition. Condition: stable Disposition: PACU Complications:: None apparent
--- NOTE | 2023-03-08 09:59 | EXP.ANES.I ---
[facility] Anesthesia Record Part I Anesthesia Record I Intake, IV Amount: 1,500 Hydration: Adequate Estimated blood loss (mL): 0 Urine output (mL): 0 Blood Pressure: 86/48 SaO2: 94 Pulse Rate: 56 Airway Patency: Patent Respiratory Rate: 12 Temperature: 97 F Patient is:: Awake, Drowsy and Stable Stable to PACU at:: 09:54
[2023-03-08 10:12] LABS: POC Glucose,Bedside 134 (70-110)
[2023-03-08] MEDS: ONDANSETRON 4MG/2ML VIAL 4 MG IV (10:26)
[2023-03-08] MEDS: PROMETHAZINE HCL 25MG/ML 1ML VIAL 6.25 MG IV (10:35)
[2023-03-08] MEDS: SODIUM CHLORIDE 0.9% 25ML BAG 25 ML IV (10:35)
--- NOTE | 2023-03-08 12:33 | EXP.ANES.II ---
[facility] Anesthesia Record Part II Anesthesia Record Part II Discharge Time: 10:44 Destination: Surgical Day Care (OP Surgery) PACU nurse assessment reviewed?: Yes Patient Condition:: Good Anesthesia Complications:: None Swallowing reflex intact?: Yes Airway Patency: Patent Cyanosis?: No Blood Pressure: 99/50 SaO2: 92 Respiratory Rate: 17 Pulse Rate: 64 Temperature: 97.2 F Mental Status: Alert & Oriented Pain level:: 0 Nausea and/or vomitting:: None Intake, IV Amount: 0 Hydration: Adequate
== END 2023-03-08 11:40 | disposition home or self-care (01) ==
PROVIDERS: PCP Family Medicine; Visit Provider Orthopaedic Surgery
PROC: (CPT 29805; principal; 2023-03-08 08:45)
DX: M75.111 Incomplete rotator cuff tear or rupture of right shoulder, not specified as traumatic (principal); Z79.899 Other long term (current) drug therapy; M75.41 Impingement syndrome of right shoulder; I10 Essential (primary) hypertension; E11.9 Type 2 diabetes mellitus without complications
CPT/HCPCS: 29827; 29826; 82962; 96374; J0736; J2405

== ENCOUNTER 2023-03-13 14:51 | Outpatient (CLI) | payer MEDICARE, SELFPAY ==
[2023-03-13 15:36] LABS: PHA INR Fingerstick 1.2 (0.9-1.1)
== END 2023-03-13 15:41 ==
LOC: ACC 14:52
PROVIDERS: PCP Family Medicine; Visit Provider Physician Assistant
DX: Z79.01 Long term (current) use of anticoagulants (principal); Z51.81 Encounter for therapeutic drug level monitoring; I48.0 Paroxysmal atrial fibrillation
CPT/HCPCS: 85610; 99211; G0463

== ENCOUNTER 2023-03-20 14:51 | Outpatient (CLI) | payer MEDICARE, SELFPAY ==
[2023-03-20 15:41] LABS: Basophils # 0.1 K/mm3 (0-0.2); Basophils % 0.8 % (0.1-2.0); Eosinophils # 0.3 K/mm3 (0.0-0.4); Eosinophils % 3.2 % (0.1-12.0); Hematocrit 42.1 % (37.0-47.0); Hemoglobin 14.1 g/dL (12.2-16.2); Lymphocytes # 2.7 K/mm3 (0.7-4.5); Lymphocytes % 28.7 % (10-50); Mean Corpuscular HGB Conc 33.4 g/dL (31.8-35.4); Mean Corpuscular Hemoglobin 31.9 pg (27.0-31.2); Mean Corpuscular Volume 95.4 fl (81-99); Mean Platelet Volume 7.7 fl (7.4-10.4); Monocytes # 0.4 K/mm3 (0.1-1.0); Monocytes % 4.1 % (1.7-9.3); Neutrophils # 5.9 K/mm3 (1.8-7.8); Neutrophils % 63.2 % (37.0-80.0); Platelet Count 404 K/mm3 (142-424); Red Blood Count 4.41 M/mm3 (4.20-5.40); Red Cell Distribution Width 13.4 % (11.5-17.5); White Blood Count 9.3 K/mm3 (4.8-10.8)
[2023-03-20 15:44] LABS: PHA INR Fingerstick 1.2 (0.9-1.1)
== END 2023-03-20 15:45 ==
PROVIDERS: PCP Family Medicine; Visit Provider Physician Assistant
DX: K92.1 Melena (principal); Z79.01 Long term (current) use of anticoagulants; Z51.81 Encounter for therapeutic drug level monitoring
CPT/HCPCS: 36415; 85025; 85610; 99211; G0463

== ENCOUNTER 2023-04-03 13:52 | Outpatient (CLI) | payer MEDICARE, SELFPAY ==
[2023-04-03 15:07] LABS: PHA INR Fingerstick 2.1 (0.9-1.1)
[2023-04-03 16:11] LABS: Chol/HDL Ratio 8.8 (1-3.5); Cholesterol 273 mg/dl (140-200); HDL Cholesterol 31 mg/dl (40-60); Triglycerides 390 mg/dl (30-150); VLDL Cholesterol 78 mg/dL (0-40)
[2023-04-03 17:27] LABS: Hemoglobin A1C 5.9 % (4.0-6.0)
== END 2023-04-03 23:59 ==
PROVIDERS: Nurse Practitioner; PCP Family Medicine; Visit Provider Physician Assistant
DX: Z79.01 Long term (current) use of anticoagulants (principal); E11.9 Type 2 diabetes mellitus without complications; E78.5 Hyperlipidemia, unspecified; I10 Essential (primary) hypertension; Z51.81 Encounter for therapeutic drug level monitoring; I48.0 Paroxysmal atrial fibrillation
CPT/HCPCS: 36415; 80061; 83036; 85610; 99211; G0463

== ENCOUNTER 2023-04-22 15:00 | Outpatient (RCR) | payer MEDICARE, SELFPAY ==
--- NOTE | 2023-04-01 16:43 | HMH.PTOPEV ---
PT Outpatient Evaluation Rehab PT Outpatient Evaluation Start: 04/01/23 14:58 Freq: Status: Active Protocol: Document 04/01/23 14:58 ELLIOTSEROUX (Rec: 04/01/23 16:42 [email or web address] [id number]) E-signed By Norberto Robles, PT Outpatient Therapy Subjective History Subjective History Pt. is a 67 year old female who presents to [facility] Outpatient Physical Therapy Services in [place] for the initial evaluation this date(04/01/23) w/ c/o acute and constant RUE shldr. P!, stiffness, and weakness S/P RUE shldr. scope on 03/08/23. Pt. reports cleaning up an osteophyte and tendon as well as a RC repair w/ the surgery. Pt. reports initial injury to YOAN lozanoldr. was back in October 2022 after pulling some boards out from a ditch as her ATUL. Pt. reports noticing an increased soreness and P! in the shldr. the next day after ATUL. Pt. reports being instructed to not lift >4-5# post surgery, don RUE shldr. brace PRN, nor pushing/pulling. Pt. RTMD . Pt. reports her Surgeon wanting to initiate Physical Therapy at this time, but not to be aggressive per pt. report. Pt. reports progressively having some improvements in post-surgical P! and motion since surgery. Current medication list includes Zebeta, Cozaar, Warfarin, Protonix, Singulair. PMH includes S/P LUE shldr. biceps tenodesis, DM-II, HTN, Hyperlipidemia, implant loop recorder to assess a-fib. New diagnosis of cancer in past 12 No months? Chief Complaint Pain,Spasms,Stiff,Catches/ Locks,Paresthesia,Weakness, Decreased Rehab Physician Strength Symptom Type Ache,Throb,Sharp,Dull,Stabbing ,Numbness,Tingling,Shooting Symptoms Relieved By Rest/Positioning,Ice,Brace/ Support,OTC Meds,Prescription Meds Symptoms Aggravated By Physical Activity,Lifting Prior Functional Limitations None Current Functional Limitations Reaching,Lifting,Housework, Dressing,Desk Work/Reading, Driving,Sleeping,Recreation Activity Symptom Description Intermittent,Activity Dependent Level of pain today (0-10) 0 Pain scale - at its best (0-10) 0 Pain scale - at its worst (0-10) 7 Shoulder/Elbow Eval Shoulder Objective Measurements Palpation Tenderness tenderness shoulder exam standard right tenderness over the bicipital tendon right shoulder exam standard tenderness over the SA bursa shoulder right exam standard Shoulder Palpation Findings Tenderness Shoulder Palpation Overall Comment grade 4 +TTP to assessment, infra/teres minor mms., biceps brachii mm. Posture Shoulder Posture Sitting Position (R) Rounded,(R) Forward,(R) Elevated Shoulder Posture Standing Position (R) Rounded,(R) Forward,(R) Elevated Scapula Posture Sitting Position (R) Protracted,(R) Elevated Scapular Posture Standing Position (R) Protracted,(R) Elevated Flexibilty Deficits Latissmus Dorsi Muscle Length (R) Severe Tightness Pectoralis Minor Muscle Length (R) Severe Tightness Pectoralis Major Muscle Length (R) Severe Tightness Shoulder External Rotators Muscle Length (R) Severe Tightness Shoulder Internal Rotators Muscle Length (R) Severe Tightness Supraspinatus Muscle Length (R) Severe Tightness Teres Major Muscle Length (R) Severe Tightness Upper Trapezius Muscle Length (R) Severe Tightness Levaetor Scapulae Muscle Length (R) Severe Tightness Shoulder ROM Right Shoulder ROM Limitations Soft Tissue Tightness,Muscle Weakness,Muscle Tone,Pain Shoulder Abduction Active Range of 44 Motion (degrees) Shoulder Abduction Passive Range of 55 Motion (degrees) Shoulder Flexion Active Range of Motion 50 (degrees) Query Text: Shoulder Flexion Passive Range of Motion 62 (degrees) Shoulder External Rotation Active Range +21 of Motion (degrees) Shoulder External Rotation Passive Range +17 of Motion (degrees) Shoulder Internal Rotation Active Range 41 of Motion (degrees) Shoulder Internal Rotation Passive Range 55 of Motion (degrees) Shoulder Extension Active Range of 27 Motion (degrees) Shoulder Extension Passive Range of 33 Motion (degrees) pain with active ROM shoulder exam right standard pain with passive ROM shoulder exam right standard decreased ROM shoulder exam standard right Shoulder MMT Rhomboids Strength Grade 4- Good- Upper Trapezius/Levator Scapulae 4- Good- Shoulder Abduction Strength Grade 3 Fair Shoulder Extension Strength Grade 3 Fair Shoulder Flexion Strength Grade 3 Fair Shoulder Horizontal Abduction Strength 3 Fair Grade Shoulder Horizontal Adduction Strength 3 Fair Grade Shoulder External Rotation Strength 3 Fair Grade Shoulder Internal Rotation Strength 3+ Fair+ Grade Shoulder Strength Patient Testing Sitting Position Shoulder Muscle Tone Shoulder Flexor Muscle Tone Description Severe Hypertonicity Shoulder Extensors Muscle Tone Severe Hypertonicity Description Shoulder Lateral Rotator Muscle Tone Severe Hypertonicity Description Elbow Objective Measurements Accessory Movements Right Shoulder Girdle Accessory Movements that Glenohumeral Ant [place], Elicit Symptoms Glenohumeral Post [place], Glenohumeral Supr [place] Outpatient Therapy Assessment Impairments Problems/Impairmments Palpation Tenderness,Impaired Range of Motion,Impaired Strength,Impaired Driving, Impaired Lifting,Impaired Dressing,Impaired Shower/ Bathing,Impaired Household Care,Impaired Recreational Activities,Impaired Desk/ Computer Activities,Subjective C/O Pain,Impaired Self Care/ Self Management Prognosis Rehab Potential Good Comment w/ HEP compliancy Clinical Impression Consistent with Diagnosis Yes Consistent with S/P RUE shldr. scope Short Term Goals Number of Weeks 2 Decreased Palpation Tenderness Yes: grade 1-2 +TTP to TTP assessment above Decrease Subjective C/O Pain Yes: worse:07/11 Patient to be Ind w/ HEP Yes Fdc Goals Number of Weeks 6-8 Decreased Palpation Tenderness Yes: grade 1 +TTP to TTP assessment above Increase Range of Motion Yes: RUE shldr. A/PROM WFL grossly(>50% ER norms) Increase Strength Yes: 4+ to 5/5 RUE shldr. MMT scores grossly Increase Ability to Drive/Ride in Car Yes: Pt. will be able to shift gear stick w/ RUE w/o difficulty Restore Ability to Lift Objects Overhead Yes: Pt. will be able to lift hairbrush to fix hair w/o difficulty Improve Ability to Dress Self Yes: Pt. will be able to don/ doff shirt/coat w/o difficulty Improve Ability to Shower/Bathe Self Yes: Pt. will be able to shave RUE axillae w/o difficulty Improve Ability For Household Care Yes: Pt. will be able to operate sweeper w/ RUE w/o difficulty Return to Recreational Activities Yes: Pt. will be able to return to sewing activities w/ o difficulty Improve Quick Dash Score Yes Decrease Subjective C/O Pain Yes: worse:-04/13 Improve Self Care/Self Management Yes Patient to be Ind w/ Advanced HEP Yes Outpatient Therapy Plan of Care Treatment Plan May Include Therapeutic Exercise Including Home Yes Exercise Program Manual Therapy Techniques Yes Neuromuscular Re-education Yes Therapeutic Activities to Return to Yes Previous Functional/Work Level ADL/Self Care Education Yes Thermal Modalities Yes Electrical Stimulation Yes Ultrasound/Phonophoresis Yes Iontophoresis Yes Vasopneumatic Compression Pump Yes Massage Yes Eval/Re-Eval Yes Frequency Times per week 2-3 Duration Number of Weeks 6-8 Addendums This patient is a candidate for social No or vocational rehab? Patient/Guardian verbally acknowledges Yes understanding of treatment program and consents to further treatment? Patient/Guardian verbally acknowledges Yes understanding of diagnosis, prognosis and goals for treatment? Eval Complexity PT Charges 60059 - Low Complexity PHYSICIAN CERTIFICATION: I certify the specified therapy services for Daisy Allen are required, authorized, and reviewed every 30 days.
== END 2023-05-01 07:45 | disposition home or self-care (01) ==
LOC: PT 15:00
PROVIDERS: PCP Family Medicine; Visit Provider Orthopaedic Surgery
DX: M25.511 Pain in right shoulder (principal); Z96.611 Presence of right artificial shoulder joint
CPT/HCPCS: 97010; 97110; 97140; 97163; 97530

== ENCOUNTER 2023-04-23 11:31 | Outpatient (CLI) | payer MEDICARE, SELFPAY ==
[2023-04-23 11:59] LABS: PHA INR Fingerstick 2.3 (0.9-1.1)
== END 2023-04-23 12:01 ==
LOC: ACC 11:32
PROVIDERS: PCP Family Medicine; Visit Provider Physician Assistant
DX: Z79.01 Long term (current) use of anticoagulants (principal); Z51.81 Encounter for therapeutic drug level monitoring; I48.0 Paroxysmal atrial fibrillation
CPT/HCPCS: 85610; 99211; G0463

== ENCOUNTER 2023-05-31 20:00 | Emergency (ER) | payer MEDICARE, SELFPAY ==
[2023-05-31 20:00] VITALS: BP 174/79; PULSE 78; RESP 13; TEMP 36.9; O2SAT 97; BMI 26.1
--- NOTE | 2023-05-31 20:07 | ECG_ITS ---
APPROVED REPORT Exam: Resting ECG HR:78 bpm ECG Measurements Heart Rate 78 AXES LA 193 P 52 QRSd 87 QRS 25 QT 364 T 62 QTc 397 Conclusion SINUS RHYTHM LOW QRS VOLTAGE IN PRECORDIAL LEADS [QRS DEFLECTION < 1.0 mV IN CHEST LEADS] BORDERLINE ECG Electronically signed by : KENROY AKBAR, 05/31/2023 23:23:02
[2023-05-31 20:14] VITALS: BP 157/76; PULSE 75; RESP 19; O2SAT 96
--- NOTE | 2023-05-31 20:29 | CT_ITS ---
PROCEDURE INFORMATION: Exam: CT Abdomen And Pelvis With Contrast Exam date and time: 05/31/2023 9:27 PM Age: 67 years old Clinical indication: Abdominal pain; Acute; Patient HX: Colonoscopy Saturday; Additional info: Abd pain since colonoscopy, can't tolerate po TECHNIQUE: Imaging protocol: Computed tomography of the abdomen and pelvis with contrast. Radiation optimization: All CT scans at this facility use at least one of these dose optimization techniques: automated exposure control; mA and/or kV adjustment per patient size (includes targeted exams where dose is matched to clinical indication); or iterative reconstruction. Contrast material: ISOVUE; Contrast volume: 75 ml; Contrast route: IV; COMPARISON: 1. CT ANGIO CHEST PE PROTOCOL 05/31/2023 9:22 PM 2. US KIDNEY 01/01/2020 2:38 PM FINDINGS: Liver: There is possible hepatic steatosis, evaluation is limited secondary to contrast enhancement. Gallbladder and bile ducts: No acute process. Pancreas: Normal. Spleen: There is a small splenule. There are multiple calcifications in the spleen most likely reflects small granulomas. Adrenal glands: The adrenal glands appear normal. Kidneys and ureters: There are no soft tissue renal masses or hydronephrosis. Stomach and bowel: There are scattered colonic diverticula without evidence for active diverticulitis. There is some wall thickening of the sigmoid colon with pericolonic inflammation (image 82 series 3). Appendix: No evidence of appendicitis. Intraperitoneal space: Unremarkable. Vasculature: The abdominal aorta and its major branches appear normal without evidence of aneurysm or stenosis. There are pelvic phleboliths. Lymph nodes: No lymphadenopathy. Urinary bladder: Unremarkable as visualized. Reproductive: No acute process. Bones/joints: The visualized osseous structures of the abdomen and pelvis appear normal for patient age. Soft tissues: There is a small fat containing umbilical hernia. Other findings: Please see the dedicated interpretation of the thorax for findings in that region. IMPRESSION: 1. Mild sigmoid colitis. 2. Please see the dedicated interpretation of the thorax for findings in that region.
--- NOTE | 2023-05-31 20:29 | CT_ITS ---
PROCEDURE INFORMATION: Exam: CTA Chest With Contrast Exam date and time: 05/31/2023 9:22 PM Age: 67 years old Clinical indication: Shortness of breath; Patient HX: Recent colonoscoy; Additional info: Palpitations/soa TECHNIQUE: Imaging protocol: Computed tomographic angiography of the chest with contrast. Exam focused on the arteries. 3D rendering (Not supervised by radiologist): MIP and/or 3D reconstructed images were created by the technologist. Radiation optimization: All CT scans at this facility use at least one of these dose optimization techniques: automated exposure control; mA and/or kV adjustment per patient size (includes targeted exams where dose is matched to clinical indication); or iterative reconstruction. Contrast material: ISOVUE; Contrast volume: 75 ml; Contrast route: INTRAVENOUS (IV); COMPARISON: 1. CR XR CHEST 2V 03/05/2023 2:06 PM 2. MR SHOULDER RT WO CON 12/21/2022 1:56 PM 3. CR XR SHOULDER RT MIN 2V 12/04/2022 1:30 PM FINDINGS: Pulmonary arteries: There is dilation of the main pulmonary artery as well as the major branch pulmonary arteries. This may reflect underlying pulmonary hypertension. There is fair opacification of the pulmonary arterial tree. No central pulmonary arterial filling defect is seen. Aorta: There is saccular ectasia of the mid aortic arch without aneurysm. There is atherosclerotic disease of the visualized aorta and its major branch vessels. Other arteries: Subsegmental vessels are not well evaluated due to technical factors. Lungs: There are scattered calcified granulomas in the lungs which most likely reflect prior granulomatous disease. There are scattered areas of emphysema throughout the lungs. Scattered areas of bronchial wall thickening which are likely chronic inflammatory. A few areas of subpleural reticulation are noted, nonspecific. Pleural spaces: Unremarkable. No pneumothorax. No pleural effusion. Heart: Unremarkable. No cardiomegaly. No pericardial effusion. Lymph nodes: There are calcified mediastinal lymph nodes likely reflecting prior granulomatous disease. There are mildly prominent mediastinal lymph nodes which are nonenlarged. Intraperitoneal space: Please see the dedicated interpretation of abdomen and pelvis for findings in that region. Bones/joints: There is diffuse degenerative disease of the visualized osseous structures. The patient is status post median sternotomy. Soft tissues: Unremarkable. Other findings: The IMPRESSION: 1. No central pulmonary arterial filling defect is seen. Subsegmental vessels are not well evaluated due to technical factors. 2. No dense parenchymal consolidation, pleural effusion, or pneumothorax. 3. Please see the dedicated interpretation of abdomen and pelvis for findings in that region. 4. Findings which suggest underlying pulmonary arterial hypertension. COMMENTS: The presence of pulmonary emphysema on CT is an independent risk factor for lung cancer. In the absence of a history or active diagnosis of lung cancer, it is recommended that this patient with emphysema be evaluated for enrollment in a low dose CT lung cancer screening program.
[2023-05-31 20:30] VITALS: BP 147/72; PULSE 75; RESP 15; O2SAT 94
[2023-05-31 20:45] LABS: Activated Partial Thrombo Time 38.9 seconds (22.8-30.6); Chloride 112 mmol/L (98-107); INR 1.26 (0.9-1.1); Prothrombin Time 13.4 seconds (10.1-12.5)
[2023-05-31 20:46] LABS: Potassium 3.3 mmoL/L (3.5-5.1); Sodium 143 mmol/L (136-145)
[2023-05-31 20:48] LABS: Blood Urea Nitrogen 12 mg/dl (7-17); Creatinine Clearance Estimated 64 mL/min (50-200); Estimated Glomerular Filt Rate 72 ml/min (>60); GFR (African American) 87 ML/MIN (>60)
[2023-05-31 20:49] LABS: Alanine Aminotransferase 42 U/L (12-78); Albumin/Globulin Ratio 1.3 (1.1-1.8); Alkaline Phosphatase 92 U/L (38-126); Anion Gap 9.3 mEq/L (5-15); Aspartate Amino Transferase 43 U/L (14-36); Bilirubin,Total 0.2 mg/dl (0.2-1.3); Calcium 9.7 mg/dl (8.4-10.2); Carbon Dioxide 25 mmol/L (22.0-30.0); Globulin 3.2 g/dL (1.3-3.2); Glucose 130 mg/dl (74-100); Lipase 75 U/L (23-300); Phosphorous 3.7 mg/dl (2.5-4.5); Total Protein,Serum 7.2 g/dl (6.3-8.2)
[2023-05-31 20:50] LABS: Magnesium 1.6 mg/dl (1.6-2.3)
[2023-05-31 20:55] LABS: Lactate Venous 2.1 mmol/L (0.4-2.0); VBG Base Excess -2.2 mmol/L (-2.4-2.3); VBG HCO3 22.7 mmol/L (23-30); VBG PCO2 38.3 mmol/L (35-51); VBG PH 7.39 mmol/L (7.31-7.41); VBG PO2 48.8 mmol/L (28-40); VBG Total CO2 23.9 mmol/L (23-27)
[2023-05-31 20:56] LABS: Basophils # 0.1 K/mm3 (0-0.2); Eosinophils # 0.3 K/mm3 (0.0-0.4); Eosinophils % 3.1 % (0.1-12.0); Hematocrit 41.8 % (37.0-47.0); Hemoglobin 13.8 g/dL (12.2-16.2); Lymphocytes # 2.3 K/mm3 (0.7-4.5); Lymphocytes % 22.9 % (10-50); Mean Corpuscular Hemoglobin 31.4 pg (27.0-31.2); Mean Platelet Volume 7.8 fl (7.4-10.4); Monocytes # 0.4 K/mm3 (0.1-1.0); Monocytes % 3.9 % (1.7-9.3); Neutrophils % 69.1 % (37.0-80.0); Platelet Count 376 K/mm3 (142-424); Red Cell Distribution Width 13.8 % (11.5-17.5); White Blood Count 10.1 K/mm3 (4.8-10.8)
--- NOTE | 2023-05-31 21:01 | ED_ITS ---
Discharge Plan Disposition Patient Disposition: Home, Self-Care Condition: Good Prescriptions Prescriptions: New ketorolac 10 mg tablet 10 mg PO Q8H PRN (Reason: pain) Qty: 14 0RF ondansetron 4 mg tablet,disintegrating 4 mg PO Q8H PRN (Reason: nausea and vomiting) 4 Days Qty: 12 0RF No Action fexofenadine [Flor Allergy] 180 mg tablet 180 mg PO DAILY psyllium husk [Fiber (psyllium husk)] 0.4 gram capsule 0.4 g PO QHS lutein 20 mg capsule 20 mg PO DAILY Rx Instructions: give with meal/snack cranberry 400 mg capsule 400 mg PO DAILY Rx Instructions: administer with a meal nitroglycerin 0.4 mg tablet, sublingual 0.4 mg SUBLINGUAL Q5M PRN (Reason: chest pain) Qty: 20 0RF Rx Instructions: do not exceed 3 doses per episode multivitamin Tablet 1 tab PO DAILY Rx Instructions: 1 tab MWF cholecalciferol (vitamin D3) 25 mcg (1,000 unit) capsule 25 mcg PO BID ferrous sulfate 325 mg (65 mg iron) tablet 325 mg PO DAILY Patient Comments: Taking four times a day fenofibric acid (choline) 135 mg capsule,delayed release(DR/EC) 135 mg PO DAILY Qty: 90 3RF (DME) OneTouch Ultra Test Strip See Rx Instructions .ROUTE .MEDSUPPLY Qty: 10 Rx Instructions: As directed pantoprazole 40 mg tablet,delayed release (DR/EC) See Rx Instructions .ROUTE .COMPLEX Qty: 90 3RF Dose Instruction: TAKE 1 TABLET BY MOUTH DAILY Rx Instructions: TAKE 1 TABLET BY MOUTH DAILY aspirin 81 mg tablet,delayed release (DR/EC) 81 mg PO DAILY Qty: 90 3RF bisoprolol fumarate 5 mg tablet 5 mg PO BID Qty: 180 3RF ezetimibe 10 mg tablet 10 mg PO DAILY 90 Days Qty: 90 3RF losartan 50 mg tablet 50 mg PO DAILY Qty: 90 3RF Januvia 25 mg tablet See Rx Instructions .ROUTE .COMPLEX Qty: 90 3RF Dose Instruction: TAKE 1 TABLET BY MOUTH DAILY Rx Instructions: TAKE 1 TABLET BY MOUTH DAILY triamterene-hydrochlorothiazid 75-50 mg tablet See Rx Instructions .ROUTE .COMPLEX Qty: 90 2RF Dose Instruction: TAKE 1/2 TABLET BY MOUTH ONCE DAILY Rx Instructions: TAKE 1/2 TABLET BY MOUTH ONCE DAILY ondansetron 4 mg tablet,disintegrating 4 mg PO BID PRN (Reason: nausea and vomiting) 5 Days Qty: 10 2RF hydrocortisone acetate [Anusol-HC] 25 mg suppository 25 mg [place] BID Qty: 12 3RF (DME) Dexcom G6 Sensor Device See Rx Instructions .Route Qty: 3 5RF Rx Instructions: As directed (DME) Dexcom G6 Sap Solution Manager Consultant Misc See Rx Instructions .Route Qty: 1 0RF Rx Instructions: As directed (DME) Dexcom G6 Transmitter Device See Rx Instructions .Route Qty: 1 5RF Rx Instructions: As directed ciprofloxacin HCl 500 mg tablet 500 mg PO BID Qty: 20 0RF warfarin 2.5 mg tablet See Rx Instructions .ROUTE .COMPLEX Qty: 90 4RF Dose Instruction: TAKE 1 TABLET BY MOUTH EVERY DAY OR DIRECTED Rx Instructions: TAKE 1 TABLET BY MOUTH EVERY DAY OR DIRECTED montelukast 10 mg tablet 10 mg PO DAILY 90 Days Qty: 90 0RF Referrals Follow up/Referrals: Asif Salazar MD [Primary Care Provider] - See instructions Activity Restrictions/Add. Instructions Additional Instructions/Restrictions: You were evaluated in the emergency department today. Please moss picker your prescriptions at the pharmacy and take them as needed for pain. You may also take Tylenol. Eat a bland diet until your symptoms have resolved. Slowly advance as tolerated. Follow-up with your primary care provider over the next 3 days. Return to the emergency department for new or worsening symptoms. Clinical Impressions Clinical Impression: Palpitations, Colitis Instructions Patient Instructions: DI for Colitis, DI for Palpitations Discharge ED Provider: Mari Jaquez HPI General Chief Complaint: Shortness of Breath/Dyspnea Stated Complaint: irregular heart rate Time Seen by Provider: 05/31/23 20:11 Mode of Arrival: Wheelchair Source of Information: Patient Limitations: No Limitations Description of Symptoms (Recalled from ER Triage Doc. by RN): Pt complains of SOB and an irregular heartbeat. Pt has hx of cardiac issues. Pt states she had a colonoscopy on Sat and hasn't felt right since then. Pt is A&O*4 and is bedside. History of Present Illness HPI narrative: This patient is a 67-year-old female with a history of hypertension, hyperlipidemia, prior CVA, and TIA on Coumadin and aspirin presenting to the emergency department for evaluation with concern for palpitations, nausea, abdominal pain, and generally feeling unwell. According to the patient, she started colonoscopy prep on Saturday as workup for bright red blood per rectum. She states that midway through her colonoscopy prep, when she started having very frequent PVCs that were unbearable. She states that she was having a lot of palpitations. Given this, she could not tolerate taking the rest of the colonoscopy prep. She states she felt like she was dehydrated. She underwent the colonoscopy on Saturday, and she states that they removed some polyps. Since then she, she has not been able to tolerate much oral intake. She has had intractable nausea as well as generalized abdominal pain that is worse with any sort of movement. She also states that she still having frequent PVCs. No fevers, chills, chest pain, vomiting, or other concerns. She has still been having diarrhea since colonoscopy prep. Related Data Home Medications Medication Instructions Recorded Confirmed cranberry 400 mg capsule 400 mg PO DAILY 11/16/19 04/23/23 fexofenadine 180 mg tablet 180 mg PO DAILY 11/16/19 04/23/23 (Flor Allergy) lutein 20 mg capsule 20 mg PO DAILY 11/16/19 04/23/23 psyllium husk 0.4 gram capsule 0.4 g PO QHS 11/16/19 04/23/23 (Fiber (psyllium husk)) multivitamin 1 tab PO DAILY 10/06/21 04/23/23 blood sugar diagnostic (OneTouch #10 ea 12/13/21 04/23/23 Ultra Test strips) cholecalciferol (vitamin D3) 25 25 mcg PO BID 04/02/22 04/23/23 mcg (1,000 unit) capsule ferrous sulfate 325 mg (65 mg 325 mg PO DAILY 04/02/22 04/23/23 iron) tablet Previous Rx's Medication Instructions Recorded nitroglycerin 0.4 mg sublingual 0.4 mg sublingual Q5M PRN chest 11/16/19 tablet pain #20 tabs blood-glucose meter,continuous #1 ea 08/15/22 (Dexcom G6 Sap Solution Manager Consultant) blood-glucose sensor (Dexcom G6 #3 ea 08/15/22 Sensor device) blood-glucose transmitter (Dexcom #1 ea 08/15/22 G6 Transmitter device) pantoprazole 40 mg tablet,delayed See Rx Instructions .Route 11/14/22 release .COMPLEX #90 tabs fenofibric acid (choline) 135 mg 135 mg PO DAILY #90 caps 11/27/22 capsule,delayed release ciprofloxacin HCl 500 mg tablet 500 mg PO BID #20 tabs 03/13/23 warfarin 2.5 mg tablet See Rx Instructions .Route 03/26/23 .COMPLEX #90 tabs aspirin 81 mg tablet,delayed 81 mg PO DAILY #90 tabs 04/03/23 release bisoprolol fumarate 5 mg tablet 5 mg PO BID #180 tabs 04/03/23 ezetimibe 10 mg tablet 10 mg PO DAILY 90 days #90 tabs 04/03/23 losartan 50 mg tablet 50 mg PO DAILY HTN #90 tabs 04/03/23 sitagliptin phosphate 25 mg tablet See Rx Instructions .Route 04/03/23 (Januvia) .COMPLEX #90 tabs triamterene 75 See Rx Instructions .Route 04/03/23 mg-hydrochlorothiazide 50 mg tablet .COMPLEX #90 tabs hydrocortisone acetate 25 mg 25 mg WI BID #12 ea 04/12/23 rectal suppository (Anusol-HC) ondansetron 4 mg disintegrating 4 mg PO BID PRN nausea and 04/12/23 tablet vomiting 5 days #10 tabs montelukast 10 mg tablet 10 mg PO DAILY 90 days #90 tabs 04/22/23 ketorolac 10 mg tablet 10 mg PO Q8H PRN pain #14 tabs 05/31/23 ondansetron 4 mg disintegrating 4 mg PO Q8H PRN nausea and 05/31/23 tablet vomiting 4 days #12 tabs Allergies Allergy/AdvReac Type Severity Reaction Status Date / Time codeine Allergy Intermediate Unknown Verified 04/23/23 11:56 allergy reaction acetaminophen [From Percocet] Allergy Rash Verified 04/23/23 11:56 adhesive tape Allergy Unknown Verified 04/23/23 11:56 allergy reaction hydrocodone [From Vicodin] Allergy Unknown Verified 04/23/23 11:56 allergy reaction niacin Allergy hives Verified 04/23/23 10:52 oxycodone [From Percocet] Allergy Rash Verified 04/23/23 11:56 Penicillins Allergy hives Verified 04/23/23 10:52 Sulfa (Sulfonamide Allergy hives Verified 04/23/23 10:52 Antibiotics) atorvastatin AdvReac myalgias Verified 04/23/23 10:52 metformin AdvReac diarrhea Verified 04/23/23 10:52 pravastatin AdvReac myalgias Verified 04/23/23 10:52 rosuvastatin AdvReac myalgias Verified 04/23/23 10:52 [facility] Disclaimer: The information contained in this section may have been updated after the patient was seen, as this information can be updated by other users. Medical History Gastroesophageal reflux disease Nausea History of CVA (cerebrovascular accident) Hx-TIA (transient ischemic attack) Left arm pain Dyspnea Chest pain Surgical History History of extraction of renal calculus H/O shoulder surgery Family History Mother Hypertension Stroke Grandmother Diabetes Grandfather Coronary artery disease Heart attack Father Heart attack Social History Smoking Status: Current every day smoker tobacco type: cigarettes packs per day: 1 alcohol intake: never substance use type: denies use current occupational status: retired Travel in the last 8 weeks: None household members: none housing: house ROS Obtained: Yes All systems reviewed & no additional complaints except as documented Physical Exam General General appearance: alert, in no apparent distress and anxious Head Head exam: atraumatic and normocephalic Eye Eye exam: Present normal appearance, PERRL and EOMI ENT ENT exam: Present normal exam, normal oropharynx, mucous membranes moist and normal external ear exam Neck Neck exam: Present normal inspection, full ROM and trachea midline; Absent tenderness Chest Chest inspection: Present normal inspection and symmetric chest wall rise; Absent tenderness Respiratory Respiratory exam: Present normal lung sounds bilaterally; Absent respiratory distress, wheezes, stridor or accessory muscle use Cardiovascular Cardiovascular exam: Present regular rate and normal rhythm Abdominal Exam Abdominal exam: Present soft, tenderness (Generalized) and normal bowel sounds; Absent distention, guarding, rebound or rigidity Extremities Exam Extremities exam: Present normal inspection, full ROM and normal capillary refill; Absent tenderness or edema Back Exam Back exam: Present normal inspection and full ROM; Absent tenderness Neurological Exam Neurological exam: Present alert, oriented X3, CN II-XII intact and normal gait; Absent motor sensory deficit Psychiatric Psychiatric exam: Present normal affect and normal mood Skin Skin exam: Present warm and dry HEART Score HEART Score HEART Score assessment performed?: Yes History (anamnesis): Slightly suspicious ECG: Normal Age: >65 years Risk factors: 3 or more risk factors Troponin: </= normal limit HEART Score: 4 Critical Care Critical Care Time Critical Care Time: No Medical Decision Making Medical Records Medical records reviewed: Yes I reviewed the patient's medical records. Jarret Inquiry Pt receiving controlled substance: No Vital Signs Vital Signs: 05/31/23 20:00 05/31/23 20:14 05/31/23 20:30 Temperature 98.4 F Temperature Source Oral Pulse Rate 75 75 Pulse Rate [Left] 78 Respiratory Rate 13 19 15 Blood Pressure 157/76 H 147/72 H Blood Pressure [Right Arm] 174/79 H Blood Pressure Mean 103 113 Blood Pressure Mean [Right Arm] 110 02 Sat by Pulse Oximetry 97 96 94 L Oxygen Delivery Method Room Air Room Air Room Air 05/31/23 22:00 05/31/23 22:30 05/31/23 23:09 Temperature 98.4 F Temperature Source Oral Pulse Rate 75 65 71 Pulse Rate [Left] Respiratory Rate 14 16 16 Blood Pressure 134/59 L 134/60 137/87 Blood Pressure [Right Arm] Blood Pressure Mean 110 98 Blood Pressure Mean [Right Arm] 02 Sat by Pulse Oximetry 96 95 Oxygen Delivery Method Room Air Room Air Room Air Lab Data Labs: Lab Results 05/31/23 20:14: WBC 10.1, RBC 4.40, Hgb 13.8, Hct 41.8, MCV 95.0, MCH 31.4 H, MCHC 33.0, RDW 13.8, Plt Count 376, MPV 7.8, Neut % (Auto) 69.1, Lymph % (Auto) 22.9, [place] % (Auto) 3.9, Eos % (Auto) 3.1, Baso % (Auto) 1.0, Neut # (Auto) 7.0, Lymph # (Auto) 2.3, [place] # (Auto) 0.4, Eos # (Auto) 0.3, Baso # (Auto) 0.1, PT 13.4 H, INR 1.26 H, APTT 38.9 H, Sodium 143, Potassium 3.3 L, Chloride 112 H, Carbon Dioxide 25, Anion Gap 9.3, BUN 12, Creatinine 0.80, Estimated Creat Clear 64, Estimated GFR 72, Est GFR ( Amer) 87, Glucose 130 H, Calcium 9.7, Phosphorus 3.7, Magnesium 1.6, Total Bilirubin 0.2, AST 43 H, ALT 42, Alkaline Phosphatase 92, Total Protein 7.2, Albumin 4.0, Globulin 3.2, Albumin/Globulin Ratio 1.3, Lipase 75, TSH 0.87, Thyroxine (T4) 10.7 05/31/23 20:52: VBG pH 7.39, VBG pCO2 38.3, VBG pO2 48.8 H, VBG HCO3 22.7 L, VBG Total CO2 23.9, VBG O2 Saturation 86.0 H, VBG Base Excess -2.2, VBG Lactic Acid 2.1 H 05/31/23 21:35: Lactate 1.2 05/31/23 22:39: Urine Color Yellow, Urine Appearance Clear, Urine pH 7.0, Ur Specific [place] 1.010, Urine Protein Negative, Urine Glucose (UA) Negative, Urine Ketones Negative, Urine Blood Negative, Urine Nitrate Negative, Urine Bilirubin Negative, Urine Urobilinogen 0.2, Ur Leukocyte Esterase Negative, Urine RBC None, Urine WBC Occasional, Ur Squamous Epith Cells Occasional, Urine Bacteria Trace 05/31/23 20:14 05/31/23 20:14 Response Orders (Tests/Meds): ED MEDICATIONS Discontinued Medications Generic Name Dose Route Start Last Admin Trade Name Freq PRN Reason Stop Dose Admin Dicyclomine HCl 20 mg 05/31/23 22:29 05/31/23 23:05 Dicyclomine 10mg Capsule PO 05/31/23 22:30 20 mg ONCE ONE Administration Lactated Ringer's 1,000 mls @ 999 mls/hr 05/31/23 21:33 05/31/23 22:02 Lactated Ringer's 1000 Ml Bag IV 05/31/23 22:33 999 mls/hr .Q1H1M ONE Administration Iopamidol 75 ml 05/31/23 21:39 05/31/23 21:42 Iopamidol-370 (76%);100ml Bottle IV 05/31/23 21:40 75 ml ONCE ONE Administration Ketorolac Tromethamine 15 mg 05/31/23 21:33 05/31/23 22:02 Ketorolac 30mg/Ml Vial IV 05/31/23 21:34 15 mg ONCE ONE Administration Ondansetron HCl 4 mg 05/31/23 21:33 05/31/23 22:03 Ondansetron 4mg/2ml Vial IV 05/31/23 21:34 4 mg ONCE ONE Administration Potassium Chloride 40 meq 05/31/23 21:21 05/31/23 22:03 Potassium Chloride 20meq Tab PO 05/31/23 21:22 40 meq ONCE ONE Administration Sodium Chloride 10 ml 05/31/23 21:39 05/31/23 21:42 Sodium Chloride 0.9% 10ml Syr (Rad Only) IV 06/30/23 21:38 10 ml NEEDED PRN Administration Maintain IV Site Sodium Chloride 50 ml 05/31/23 21:41 05/31/23 21:42 0.9 % Sodium Chloride 50 Ml Vial IV 05/31/23 21:42 50 ml ONCE ONE Administration ORDERS Category Date Time Status CT abdomen pelvis w con Stat Cat Scan 05/31/23 20:[address] angio chest PE protocol Stat Cat Scan 05/31/23 20:29 Completed Activated Partial Thrombo Time Stat Lab 05/31/23 20:14 Completed Complete Blood Count Auto Diff Stat Lab 05/31/23 20:14 Completed Comprehensive Metabolic Panel Stat Lab 05/31/23 20:14 Completed Lactic Acid Stat Lab 05/31/23 21:35 Completed Lipase Stat Lab 05/31/23 20:14 Completed Magnesium Stat Lab 05/31/23 20:14 Completed Phosphorous Stat Lab 05/31/23 20:14 Completed Prothrombin Time INR Stat Lab 05/31/23 20:14 Completed T4 (Thyroxine) Stat Lab 05/31/23 20:14 Completed Thyroid Stimulating Hormone Stat Lab 05/31/23 20:14 Completed Urinalysis and Microscopic Stat Lab 05/31/23 22:39 Completed Venous Blood Gas Stat RT 05/31/23 20:52 Completed ECG Data Tracing #1: Attestation: I reviewed this ECG and interpreted as documented below: ECG Narrative: Normal sinus rhythm with a ventricular rate of 70 bpm. No PVCs captured on this EKG. No acute ST changes concerning for ischemia. Normal axis and intervals. ECG initial impression date: 05/31/23 ECG initial impression time: 20:12 MDM Narrative Medical Decision Narrative: In summary, this patient is a 67-year-old female presenting to the Emergency Department for evaluation of palpitations and abdominal pain since colonoscopy. Differential diagnoses considered include but are not limited to intestinal perforation, colitis, bowel obstruction, electrolyte derangements, dehydration, ACS, dysrhythmia. Ruling out the most morbid conditions drove assessment. On exam, the patient is nontoxic-appearing. Vitals are normal on cardiac telemetry. Workup included CBC, CMP, TSH, T4, troponin, VBG, lactic acid, magnesium, phosphorus, CT PE protocol, and CT abdomen pelvis with IV contrast. EKG obtained is reassuring. She is given a bolus of IV fluids as well as IV Zofran and Toradol for symptomatic improvement. I independently interpreted CT scan prior to the radiologist read and noted concerns for colitis. Please see their read for final interpretation. Labs were obtained that demonstrated mild hypokalemia, for which oral replacement was ordered. No other acute concerning abnormalities noted. Negative troponin. No urinary tract infection. On reassessment, patient had good improvement after administration of interventions above. She is still having some intestinal spasm, which Bentyl was administered. She tolerated this well. At this time, I considered admission of the patient for further evaluation and management of her complaints and colitis, however patient wants to try going home. Advised instructions for pain control and bowel rest. I prescribed the patient Toradol to take at home as needed for pain as well as Zofran. Patient was given strict return precautions should her symptoms get worse. I considered prescribing antibiotics however in the setting of uncomplicated colitis without abscess or SIRS criteria, I do not feel that antibiotics are indicated. Patient was given instructions for close a patient follow-up, and she was discharged in stable condition after all questions were answered.
[2023-05-31 21:05] LABS: T4 (Thyroxine) 10.7 ug/dl (5.53-11.0)
[2023-05-31 21:18] LABS: Thyroid Stimulating Hormone 0.87 uIU/mL (0.465-4.68)
[2023-05-31] MEDS: 0.9 % SODIUM CHLORIDE 50 ML VIAL IV (21:42)
[2023-05-31] MEDS: SODIUM CHLORIDE 0.9% 10ML SYR (RAD ONLY) 10 ML IV (21:42)
[2023-05-31] MEDS: IOPAMIDOL-370 (76%);100ML BOTTLE 75 ML IV (21:42)
[2023-05-31 21:51] LABS: Lactic Acid 1.2 mmol/L (0.7-2.1)
[2023-05-31 22:00] VITALS: BP 134/59; PULSE 75; RESP 14; O2SAT 96
[2023-05-31] MEDS: LACTATED RINGERS 1000ML 1,000 ML 999 ML IV (22:02)
[2023-05-31] MEDS: KETOROLAC 30MG/ML VIAL 15 MG IV (22:02)
[2023-05-31] MEDS: POTASSIUM CHLORIDE 20MEQ TAB 40 MEQ PO (22:03)
[2023-05-31] MEDS: ONDANSETRON 4MG/2ML VIAL 4 MG IV (22:03)
[2023-05-31 22:30] VITALS: BP 134/60; PULSE 65; RESP 16; O2SAT 95
[2023-05-31 22:42] LABS: Microscopic, Urine URINE MICROSCOPIC (MICROSCOPIC)
[2023-05-31 22:44] LABS: Appearance,Urine CLEAR (Clear); Bilirubin,Urine Negative (Negative); Blood, Urine Negative (Negative); Color,Urine YELLOW (Yellow); Glucose,Urine (UA) Negative (Negative); Ketones,Urine Negative (Negative); Leukocyte Esterase,Urine Negative (Negative); Nitrate,Urine Negative (Negative); Protein,Urine Negative (Negative); Urobilinogen,Urine 0.2 EU/dl (0.2)
[2023-05-31] MEDS: DICYCLOMINE 10MG CAPSULE 20 MG PO (23:05)
[2023-05-31 23:09] VITALS: BP 137/87; PULSE 71; RESP 16; TEMP 36.9; O2SAT 98
[2023-05-31 23:12] LABS: Bacteria,Urine Trace /lpf; Squamous Epithelial Cell,Urine Occasional #/hpf (0-5); WBC,Urine Occasional #/hpf (0-3)
== END 2023-05-31 23:09 | disposition home or self-care (01) ==
PROVIDERS: Emergency Provider Emergency Medicine; PCP Family Medicine
DX: R10.84 Generalized abdominal pain (principal); K52.9 Noninfective gastroenteritis and colitis, unspecified; E87.6 Hypokalemia; R11.2 Nausea with vomiting, unspecified; R00.2 Palpitations; I10 Essential (primary) hypertension; E78.5 Hyperlipidemia, unspecified; K21.9 Gastro-esophageal reflux disease without esophagitis; F17.210 Nicotine dependence, cigarettes, uncomplicated; Z86.73 Personal history of transient ischemic attack (TIA), and cerebral infarction without residual deficits; Z79.01 Long term (current) use of anticoagulants
CPT/HCPCS: 71275; 74177; 80053; 81001; 82803; 83605; 83690; 83735; 84100; 84436; 84443; 85025; 85610; 85730; 93005; 96361; 96374; 96375; 99285; J2405; Q9967

== ENCOUNTER 2023-06-05 14:49 | Outpatient (CLI) | payer MEDICARE, SELFPAY ==
[2023-06-05 15:52] LABS: PHA INR Fingerstick 2.2 (0.9-1.1)
== END 2023-06-05 15:53 ==
LOC: ACC 14:50
PROVIDERS: PCP Family Medicine; Visit Provider Physician Assistant
DX: I48.0 Paroxysmal atrial fibrillation; Z51.81 Encounter for therapeutic drug level monitoring; Z79.01 Long term (current) use of anticoagulants
CPT/HCPCS: 85610; 99211; G0463

== ENCOUNTER 2023-06-14 07:54 | Outpatient (CLI) | payer MEDICARE, SELFPAY ==
[2023-06-14 16:40] LABS: Anion Gap 13.3 mEq/L (5-15); Blood Urea Nitrogen 17 mg/dl (7-17); Calcium 9.6 mg/dl (8.4-10.2); Carbon Dioxide 20 mmol/L (22.0-30.0); Chloride 111 mmol/L (98-107); Estimated Glomerular Filt Rate 63 ml/min (>60); GFR (African American) 76 ML/MIN (>60); Glucose 114 mg/dl (74-100); Potassium 4.3 mmoL/L (3.5-5.1); Sodium 140 mmol/L (136-145)
[2023-06-14 17:04] LABS: Basophils # 0.1 K/mm3 (0-0.2); Basophils % 1.3 % (0.1-2.0); Eosinophils # 0.2 K/mm3 (0.0-0.4); Eosinophils % 3.3 % (0.1-12.0); Hematocrit 48.1 % (37.0-47.0); Hemoglobin 15.1 g/dL (12.2-16.2); Lymphocytes # 1.7 K/mm3 (0.7-4.5); Lymphocytes % 25.5 % (10-50); Mean Corpuscular HGB Conc 31.5 g/dL (31.8-35.4); Mean Corpuscular Hemoglobin 30.3 pg (27.0-31.2); Mean Corpuscular Volume 96.4 fl (81-99); Mean Platelet Volume 8.1 fl (7.4-10.4); Monocytes # 0.3 K/mm3 (0.1-1.0); Neutrophils # 4.4 K/mm3 (1.8-7.8); Platelet Count 328 K/mm3 (142-424); Red Blood Count 4.99 M/mm3 (4.20-5.40); Red Cell Distribution Width 13.8 % (11.5-17.5); White Blood Count 6.7 K/mm3 (4.8-10.8)
== END 2023-06-14 23:59 ==
LOC: LAB.DROPOF 06-16 07:55
PROVIDERS: PCP Family Medicine; Visit Provider Family Medicine
DX: K52.9 Noninfective gastroenteritis and colitis, unspecified (principal); D64.9 Anemia, unspecified
CPT/HCPCS: 80048; 85025

== ENCOUNTER 2023-06-18 10:25 | Outpatient (CLI) | payer MEDICARE, SELFPAY ==
[2023-06-18 11:01] LABS: PHA INR Fingerstick 2.7 (0.9-1.1)
== END 2023-06-18 11:02 ==
LOC: ACC 10:26
PROVIDERS: PCP Family Medicine; Visit Provider Physician Assistant
DX: I48.0 Paroxysmal atrial fibrillation (principal); Z51.81 Encounter for therapeutic drug level monitoring; Z79.01 Long term (current) use of anticoagulants
CPT/HCPCS: 85610; 99211; G0463

== ENCOUNTER 2023-07-31 14:46 | Outpatient (CLI) | payer MEDICARE, SELFPAY ==
[2023-07-31 16:03] LABS: PHA INR Fingerstick 2.4 (0.9-1.1)
== END 2023-07-31 16:04 ==
LOC: ACC 14:47
PROVIDERS: PCP Family Medicine; Visit Provider Physician Assistant
DX: Z79.01 Long term (current) use of anticoagulants (principal); Z51.81 Encounter for therapeutic drug level monitoring; I48.0 Paroxysmal atrial fibrillation
CPT/HCPCS: 85610; 99211; G0463

== ENCOUNTER 2023-09-11 14:48 | Outpatient (CLI) | payer MEDICARE, SELFPAY ==
[2023-09-11 15:49] LABS: PHA INR Fingerstick 2.5 (0.9-1.1)
== END 2023-09-11 15:52 ==
LOC: ACC 14:50
PROVIDERS: PCP Family Medicine; Visit Provider Physician Assistant
DX: Z79.01 Long term (current) use of anticoagulants (principal); I48.91 Unspecified atrial fibrillation
CPT/HCPCS: 85610; 99211; G0463

== ENCOUNTER 2023-09-24 13:27 | Outpatient (CLI) | payer MEDICARE, SELFPAY ==
[2023-09-24 16:48] LABS: Basophils # 0.1 K/mm3 (0-0.2); Basophils % 0.9 % (0.1-2.0); Eosinophils # 0.3 K/mm3 (0.0-0.4); Eosinophils % 3.2 % (0.1-12.0); Hematocrit 39.9 % (37.0-47.0); Hemoglobin 13.2 g/dL (12.2-16.2); Lymphocytes # 2.5 K/mm3 (0.7-4.5); Lymphocytes % 25.1 % (10-50); Mean Corpuscular HGB Conc 33.1 g/dL (31.8-35.4); Mean Corpuscular Hemoglobin 30.7 pg (27.0-31.2); Mean Corpuscular Volume 92.9 fl (81-99); Mean Platelet Volume 9.2 fl (7.4-10.4); Monocytes # 0.4 K/mm3 (0.1-1.0); Monocytes % 3.9 % (1.7-9.3); Neutrophils # 6.6 K/mm3 (1.8-7.8); Neutrophils % 66.9 % (37.0-80.0); Platelet Count 404 K/mm3 (142-424); Red Cell Distribution Width 14.4 % (11.5-17.5); White Blood Count 9.9 K/mm3 (4.8-10.8)
[2023-09-24 16:49] LABS: Alanine Aminotransferase 33 U/L (12-78); Albumin/Globulin Ratio 1.3 (1.1-1.8); Alkaline Phosphatase 85 U/L (38-126); Anion Gap 12.4 mEq/L (5-15); Aspartate Amino Transferase 34 U/L (14-36); Bilirubin,Total 0.4 mg/dl (0.2-1.3); Blood Urea Nitrogen 18 mg/dl (7-17); Carbon Dioxide 23 mmol/L (22.0-30.0); Chloride 110 mmol/L (98-107); Cholesterol 231 mg/dl (140-200); Estimated Glomerular Filt Rate 72 ml/min (>60); GFR (African American) 87 ML/MIN (>60); Globulin 3.1 g/dL (1.3-3.2); Glucose 88 mg/dl (74-100); HDL Cholesterol 33 mg/dl (40-60); Potassium 4.4 mmoL/L (3.5-5.1); Sodium 141 mmol/L (136-145); Total Protein,Serum 7.1 g/dl (6.3-8.2); Triglycerides 320 mg/dl (30-150); VLDL Cholesterol 64 mg/dL (0-40)
[2023-09-24 17:01] LABS: Direct LDL Cholesterol 154.34 mg/dL (100-129)
[2023-09-24 19:24] LABS: Hemoglobin A1C 5.9 % (4.0-6.0)
== END 2023-09-24 23:59 | disposition home or self-care (01) ==
LOC: LAB.DROPOF 09-25 13:28
PROVIDERS: PCP Family Medicine; Visit Provider Family Medicine
DX: E11.9 Type 2 diabetes mellitus without complications (principal); I48.0 Paroxysmal atrial fibrillation; E78.2 Mixed hyperlipidemia; I10 Essential (primary) hypertension; Z72.0 Tobacco use
CPT/HCPCS: 80050; 80053; 80061; 83036; 84443; 85025

== ENCOUNTER 2023-09-27 10:05 | Outpatient (CLI) | payer MEDICARE, SELFPAY ==
--- NOTE | 2023-09-27 10:06 | US_ITS ---
FINAL REPORT TECHNIQUE: Multiple transverse and longitudinal images CLINICAL HISTORY: persistent nausea FINDINGS: The gallbladder shows no wall thickening, distention or stone disease. No biliary ductal dilatation is appreciated. No fluid collections are seen. There is fatty infiltration of the liver. Limited portions of the right kidney are unremarkable. IMPRESSION: Fatty liver. Reviewed, Interpreted and Dictated by Rahul Cosby MD Transcribed by Padmini Patricio Authenticated and [facility]
== END 2023-09-27 23:59 | disposition home or self-care (01) ==
LOC: RAD 10:06
PROVIDERS: PCP Family Medicine; Visit Provider Family Medicine
DX: R11.0 Nausea (principal); K76.0 Fatty (change of) liver, not elsewhere classified
CPT/HCPCS: 76705

== ENCOUNTER 2023-10-10 12:06 | Outpatient (CLI) | payer MEDICARE, SELFPAY ==
--- NOTE | 2023-10-10 12:06 | NM_ITS ---
APPROVED REPORT Exam: Nuclear Stress Test Indication: HTN, DM, HYPERLIPIDEMIA, TOB USE, FM HX, SOB ABN EKG Patient Location: Outpatient Stress Tech: Natasha Morgan [place] Tech:Kalina Coleman ARRBette RT (R)(N)(M) Ht: 5 ft 6 in Wt: 152 lbs Bra Size: C HR: 71 bpm BP: 133/71 mmHg BSA: 1.78 m2 TID: 1.07 BMI: 24.5 History: HTN, DM, HYPERLIPIDEMIA, TOB USE, FM HX, SOB ABN EKG PT COULD NOT HOLD RT ARM ABOVE HEAD ON STRESS IMAGES NOR COULD SHE LAY ON HER STOMACH FOR PRONE IMAGES DUE TO RECENT SHOULDER SURGERY Procedure: Patient received 0.4 mg of intravenous Lexiscan, resting heart rate 71 bpm, resting blood pressure 133/71 mmHg, with Lexiscan maximum heart rate achieved was 102 bpm which is % of the maximum predicted heart rate and blood pressure was 148/64 mmHg. With Lexiscan, patient denied any complaint of chest pain. Cardiac Stress and Resting SPECT Images: Cardiac Stress and Resting SPECT images were obtained using technetium 99m Myoview 30.0 mCi stress and 10.45 mCi at rest. The patient is unable to lie on her abdomen. Therefore, prone stress imaging could not be performed. This may affect the diagnostic interpretation of the study findings. Resting and stress imaging in supine positions demonstrate no evidence of fixed or reversible perfusion defects. Gated imaging demonstrates normal global and regional LV systolic function. LVEF is calculated at 68%. Conclusion: No evidence of fixed or reversible perfusion defects. Gated imaging demonstrates normal global and regional LV systolic function. LVEF is calculated at 68%. Electronically signed by : Priti Arndt MD 10/10/2023 19:41:33
--- NOTE | 2023-10-10 12:06 | CA_ITS ---
APPROVED REPORT Exam: Pharmacologic Technologist: Natasha Hall, Ht: 5 ft 6 in Wt: 154 lbs BSA: 1.79 m2 HR: 72 bpm BP: 133/71 mmHg Rhythm: NSR Medical History Medications: Aspirin,,,,, Warfarin,,,,, Ferrous sulfate,,,,, Vitamin D3,,,,, Losartan,,,,, Pantoprazole,,,,, Januvia,,,,, BisOPROLOL Fumarate,,,,, Nitroglycerin,,,,, Fexofenadine,,,,, Ezetimibe,,,,, [place],,,,, Stress Test Details Test: LEXISCAN Reason for pharmacologic stress test: physical limitation. HR Resting HR: 71 bpm Max Heart Rate (APMHR): 153 bpm Max HR Achieved: 102 bpm Target HR (85% APMHR): 130 bpm % of APMHR: 67 Recovery HR: 85 bpm BP Resting BP: 133.0/71.0 mmHg Max BP: 148.0/64.0 mmHg Recovery BP: 143.0/70.0 mmHg ECG Resting ECG: NSR, rightward axis, low voltage QRS, cannot R/O old high lateral AR Stress ECG: No significant ST changes Arrhythmia: None Clinical Exercise duration: 04:00 min Highest Stage Achieved: Stress ECG Conclusion Symptoms: Head discomfort, headache, nausea. No CP. Arrhythmias: None ST-T Changes: No significant ST changes. Conclusion: Unremarkale Lexiscan stress. Myoview images reported separately. Test Summary REST . . . . . . . Resting REST 05:26 . . 71 . 133/ 71 . . Stage 1 01:00 . . 90 . . . . Stage 2 01:00 . . 99 . 145/ 71 . . Stage 3 01:00 . . 96 . 148/ 64 . . Stage 4 01:00 . . 91 . 131/ 65 . Stop exercise at 04:00 RECOVERY 01:00 . . 88 . . . . RECOVERY 02:00 . . 88 . . . . RECOVERY 03:00 . . 85 . 126/ 63 . . RECOVERY 04:00 . . 85 . 143/ 70 . . RECOVERY 04:02 . . 84 . 143/ 70 . . Electronically signed by : Priti Arndt MD 10/10/2023 19:39:48
[2023-10-10] MEDS: REGADENOSON 0.4MG/5ML SYRINGE 0.4 MG IV (12:10)
[2023-10-10] MEDS: SODIUM CHLORIDE 0.9% 10ML SYR (RAD ONLY) 10 ML IV ×2 (12:10→13:15)
--- NOTE | 2023-10-10 12:15 | CA_ITS ---
APPROVED REPORT EXAM: Comprehensive 2D, Doppler, and color-flow Echocardiogram [employer] Manager: Quin Montalvo RDCS Ht: 5 ft 6 in Wt: 154lbs BSA: 1.79 BP: 149/70 mmHg Indications: ABN EKG,DM,HTN,SMOKER,SOA, BUBBLE STUDY,DEFINITY GIVEN H/O CVA,TIA M-Mode Dimensions RVDd 1.17 cm (0.9-2.6) LA Diam 3.11 cm (1.9-4.0) LVDd 5.27 cm (3.5-5.7) LVDs 3.34 cm (3.5-5.7) IVSd 0.68 cm (0.6-1.1) PWd 0.97 cm (0.6-1.1) EF (Teich) 66.00% FS 36.60% EDV (Teich) 133.60 mL TAPSE 1.54 (<1.7) ESV (Teich) 45.40 mL LV Diastology E Decel Time 170 (160-240 msec) E/A Ratio 0.8 Mitral Valve MV E Max Naveen. 62.0 (40-130 cm/s) MV A Velocity 78.0 (40-130 cm/s) E/A Ratio 0.80 MV PHT 50.0 ms Left Ventricle The left ventricle is normal size. The left ventricular systolic function is low-normal. There is normal left ventricular wall thickness. There is normal LV segmental wall motion. Transmitral Doppler flow pattern suggests impaired LV relaxation. No left ventricle thrombus noted on this study. LVEF is 50%. Right Ventricle The right ventricle is mildly dilated. Right ventricle is mildly hypokinetic. Atria The left atrium is mildly dilated. Right atrium is mildly dilated. There is no Doppler evidence of interatrial shunt. Agitated saline administration demonstrates presence of bubbles from the RA into the LA within 3 cardiac cycles, consistent with presence of interatrial shunt. Aortic Valve The aortic valve is mildly thickened. There is no aortic valvular stenosis. No aortic regurgitation is present. Mitral Valve The mitral valve is normal in structure. No evidence of mitral valve stenosis. Mild mitral valve regurgitation noted. Tricuspid Valve The tricuspid valve leaflets are thin and pliable. Trace tricuspid regurgitation. There is insufficient TR jet to estimate RVSP. Pulmonic Valve The pulmonary valve is normal in structure. Trace pulmonic regurgitation. Great Vessels The aortic root is normal in size. The ascending aorta is not well visualized. IVC is normal in size and collapses >50% with inspiration. Pericardium There is no pericardial effusion. Other Information Study Quality: Fair Conclusion Low-normal LV systolic function (LVEF 50%). Mild RV dilation with mild reduction in RV function. Mild biatrial dilation. Mild MR. Agitated saline administration demonstrates presence of bubbles from the RA into the LA within 3 cardiac cycles, consistent with presence of interatrial shunt. Electronically signed by : Priti Arndt MD 10/13/2023 20:25:35
[2023-10-10] MEDS: DEFINITY US ECHO CONTRAST 2ML INJ 2 MG IV (12:52)
[2023-10-10] MEDS: ISOTOPE MYOVIEW (PER STUDY) 1 DOSE IV (13:38)
== END 2023-10-10 23:59 | disposition home or self-care (01) ==
LOC: RAD 12:06
PROVIDERS: PCP Family Medicine; Visit Provider Internal Medicine
DX: R94.31 Abnormal electrocardiogram [ECG] [EKG] (principal); R06.00 Dyspnea, unspecified; Z86.73 Personal history of transient ischemic attack (TIA), and cerebral infarction without residual deficits; I10 Essential (primary) hypertension; E78.2 Mixed hyperlipidemia; Z79.01 Long term (current) use of anticoagulants; F17.210 Nicotine dependence, cigarettes, uncomplicated
CPT/HCPCS: 78452; 93017; 93018; 93306; A9502; J2785; Q9957

== ENCOUNTER 2023-10-23 15:00 | Outpatient (CLI) | payer MEDICARE, SELFPAY ==
[2023-10-23 15:35] LABS: PHA INR Fingerstick 2.5 (0.9-1.1)
== END 2023-10-23 15:37 ==
LOC: ACC 15:00
PROVIDERS: PCP Family Medicine; Visit Provider Physician Assistant
DX: Z79.01 Long term (current) use of anticoagulants (principal); I48.0 Paroxysmal atrial fibrillation
CPT/HCPCS: 85610; 99211; G0463

== ENCOUNTER 2023-12-04 14:58 | Outpatient (CLI) | payer MEDICARE, SELFPAY ==
[2023-12-04 15:55] LABS: PHA INR Fingerstick 2.4 (0.9-1.1)
== END 2023-12-04 15:57 ==
LOC: ACC 15:01
PROVIDERS: PCP Family Medicine; Visit Provider Physician Assistant
DX: Z79.01 Long term (current) use of anticoagulants (principal); I48.0 Paroxysmal atrial fibrillation
CPT/HCPCS: 85610; 99211; G0463

== ENCOUNTER 2024-01-15 14:13 | Outpatient (CLI) | payer MEDICARE, SELFPAY ==
[2024-01-15 15:01] LABS: PHA INR Fingerstick 2.7 (0.9-1.1)
== END 2024-01-15 15:03 ==
LOC: ACC 14:14
PROVIDERS: PCP Family Medicine; Visit Provider Physician Assistant
DX: Z79.01 Long term (current) use of anticoagulants (principal); I48.91 Unspecified atrial fibrillation
CPT/HCPCS: 85610; 99211; G0463

== ENCOUNTER 2024-02-28 14:43 | Outpatient (CLI) | payer MEDICARE, SELFPAY ==
[2024-02-28 15:13] LABS: PHA INR Fingerstick 2.7 (0.9-1.1)
== END 2024-02-28 15:17 ==
LOC: ACC 14:44
PROVIDERS: PCP Family Medicine; Visit Provider Physician Assistant
DX: Z79.01 Long term (current) use of anticoagulants (principal); I48.0 Paroxysmal atrial fibrillation
CPT/HCPCS: 85610; 99211; G0463

== ENCOUNTER 2024-04-15 15:14 | Outpatient (CLI) | payer MEDICARE, SELFPAY ==
[2024-04-15 15:49] LABS: PHA INR Fingerstick 2.8 (0.9-1.1)
== END 2024-04-15 15:50 ==
LOC: ACC 15:15
PROVIDERS: PCP Family Medicine; Visit Provider Physician Assistant
DX: Z79.01 Long term (current) use of anticoagulants (principal); I48.0 Paroxysmal atrial fibrillation
CPT/HCPCS: 85610; 99211; G0463

== ENCOUNTER 2024-05-19 15:50 | Outpatient (CLI) | payer MEDICARE, SELFPAY ==
[2024-05-19 21:33] LABS: Anion Gap 13.5 mEq/L (5-15); Blood Urea Nitrogen 29 mg/dl (7-17); Calcium 9.8 mg/dl (8.4-10.2); Carbon Dioxide 21 mmol/L (22.0-30.0); Chloride 107 mmol/L (98-107); Estimated Glomerular Filt Rate 50 ml/min (>60); GFR (African American) 60 ML/MIN (>60); Glucose 109 mg/dl (74-100); Potassium 4.5 mmoL/L (3.5-5.1); Sodium 137 mmol/L (136-145)
== END 2024-05-19 23:59 | disposition home or self-care (01) ==
LOC: LAB 15:50
PROVIDERS: PCP Family Medicine; Visit Provider Internal Medicine
DX: I10 Essential (primary) hypertension (principal); E78.2 Mixed hyperlipidemia
CPT/HCPCS: 36415; 80048

== ENCOUNTER 2024-05-27 14:42 | Outpatient (CLI) | payer MEDICARE, SELFPAY ==
[2024-05-27 15:04] LABS: PHA INR Fingerstick 2.5 (0.9-1.1)
== END 2024-05-27 15:09 ==
LOC: ACC 14:43
PROVIDERS: PCP Family Medicine; Visit Provider Physician Assistant
DX: I48.0 Paroxysmal atrial fibrillation (principal); Z79.01 Long term (current) use of anticoagulants
CPT/HCPCS: 85610; 99211; G0463

== ENCOUNTER 2024-07-08 14:44 | Outpatient (CLI) | payer MEDICARE, SELFPAY ==
[2024-07-08 15:46] LABS: PHA INR Fingerstick 2.7 (0.9-1.1)
== END 2024-07-08 15:53 ==
LOC: ACC 14:45
PROVIDERS: PCP Family Medicine; Visit Provider Physician Assistant
DX: Z79.01 Long term (current) use of anticoagulants (principal); I48.91 Unspecified atrial fibrillation
CPT/HCPCS: 85610; 99211; G0463

== ENCOUNTER 2024-07-22 13:57 | Outpatient (CLI) | payer MEDICARE, SELFPAY ==
[2024-07-22 15:27] LABS: Chloride 112 mmol/L (98-107)
[2024-07-22 15:28] LABS: Potassium 3.6 mmoL/L (3.5-5.1); Sodium 141 mmol/L (136-145)
[2024-07-22 15:31] LABS: Anion Gap 9.6 mEq/L (5-15); Blood Urea Nitrogen 16 mg/dl (7-17); Calcium 9.2 mg/dl (8.4-10.2); Carbon Dioxide 23 mmol/L (22.0-30.0); Estimated Glomerular Filt Rate 72 ml/min (>60); GFR (African American) 87 ML/MIN (>60); Glucose 127 mg/dl (74-100)
== END 2024-07-22 23:59 | disposition home or self-care (01) ==
PROVIDERS: PCP Family Medicine; Visit Provider Internal Medicine
DX: E78.5 Hyperlipidemia, unspecified (principal); I10 Essential (primary) hypertension; F17.210 Nicotine dependence, cigarettes, uncomplicated
CPT/HCPCS: 36415; 80048

== ENCOUNTER 2024-08-05 12:16 | Outpatient (CLI) | payer MEDICARE, SELFPAY ==
[2024-08-05 13:19] LABS: Basophils # 0.1 K/mm3 (0-0.2); Basophils % 0.7 % (0.1-2.0); Eosinophils # 0.3 Kmm3 (0.0-0.4); Eosinophils % 3.7 % (0.1-12.0); Hematocrit 38.6 % (37.0-47.0); Hemoglobin 12.5 g/dL (12.2-16.2); Immature Granulocytes # 0.06 10^3uL; Immature Granulocytes % 0.8 %; Lymphocytes # 1.8 K/mm3 (0.7-4.5); Mean Corpuscular HGB Conc 32.4 g/dL (31.8-35.4); Mean Corpuscular Hemoglobin 28.2 pg (27.0-31.2); Mean Corpuscular Volume 87.1 fl (81-99); Mean Platelet Volume 9.3 fl (7.4-10.4); Monocytes # 0.5 K/mm3 (0.1-1.0); Monocytes % 6.9 % (1.7-9.3); Neutrophils # 4.7 K/mm3 (1.8-7.8); Neutrophils % 63.9 % (37.0-80.0); Nucleated Red Blood Cells # 0 10^3/uL; Nucleated Red Blood Cells % 0 %; Platelet Count 369 K/mm3 (142-424); Red Blood Count 4.43 M/mm3 (4.20-5.40); Red Cell Distribution Width 14.5 % (11.5-17.5); Red Cell Distribution Width-SD 46.5 fL; White Blood Count 7.3 K/mm3 (4.8-10.8)
[2024-08-05 14:00] LABS: Albumin Level 4.3 g/dl (3.5-5.0); Chloride 110 mmol/L (98-107)
[2024-08-05 14:01] LABS: Potassium 4.9 mmoL/L (3.5-5.1); Sodium 140 mmol/L (136-145)
[2024-08-05 14:03] LABS: Alanine Aminotransferase 21 U/L (12-78); Anion Gap 11.9 mEq/L (5-15); Aspartate Amino Transferase 28 U/L (14-36); Blood Urea Nitrogen 26 mg/dl (7-17); Carbon Dioxide 23 mmol/L (22.0-30.0); Cholesterol 236 mg/dl (140-200); Estimated Glomerular Filt Rate 50 ml/min (>60); GFR (African American) 60 ML/MIN (>60); Total Protein,Serum 7.5 g/dl (6.3-8.2); Triglycerides 389 mg/dl (30-150); VLDL Cholesterol 78 mg/dL (0-40)
[2024-08-05 14:04] LABS: Alkaline Phosphatase 81 U/L (38-126); Bilirubin,Direct 0.2 mg/dl (0.0-0.4); Bilirubin,Indirect 0.1 mg/dL (0.0-0.9); Bilirubin,Total 0.3 mg/dl (0.2-1.3); Calcium 9.4 mg/dl (8.4-10.2); Chol/HDL Ratio 7.9 (1-3.5); Glucose 120 mg/dl (74-100); HDL Cholesterol 30 mg/dl (40-60); Magnesium 1.7 mg/dl (1.6-2.3)
[2024-08-05 14:15] LABS: Direct LDL Cholesterol 144.85 mg/dL (100-129)
[2024-08-05 14:25] LABS: Free T4 (Free Thyroxine) 1.16 ng/dl (0.78-2.19)
[2024-08-05 14:29] LABS: Thyroid Stimulating Hormone 1.13 uIU/mL (0.465-4.68)
== END 2024-08-05 23:59 | disposition home or self-care (01) ==
LOC: LAB 12:17
PROVIDERS: PCP Family Medicine; Visit Provider Internal Medicine
DX: I10 Essential (primary) hypertension (principal); E11.9 Type 2 diabetes mellitus without complications; Z01.810 Encounter for preprocedural cardiovascular examination; Z79.01 Long term (current) use of anticoagulants; Z86.73 Personal history of transient ischemic attack (TIA), and cerebral infarction without residual deficits
CPT/HCPCS: 36415; 80048; 80061; 80076; 83036; 83735; 84439; 84443; 85025

== ENCOUNTER 2024-08-19 14:53 | Outpatient (CLI) | payer MEDICARE, SELFPAY ==
--- OUTSIDE RECORDS SUMMARY | 2024-08-19 14:56 | XMS_ITS | Clinical Summary ---
Author Organization Healthcare Address [address] [place] [address] Care Team Providers Care Electro Plater Name Role Phone Unavailable Primary Care Provider Unavailabl e Allergies Active Allergy Reactions Criticality Noted Date Comments Codeine Hives,Unknown - Patient states they do not know rxn details Medium 05/01/2011 codeine Hydrocodone Other - please document in the comment field Low 05/03/2011 Hydrocodone Bitartrate Hydrocodone-Acetaminoph en Hives Medium 05/01/2011 Vicodin lortab Oxycodone Itching,Hives Medium 11/26/2012 Penicillins Itching,Hives,Unkno wn - Patient states they do not know rxn details Medium 05/01/2011 Penicillins Statins Other - please document in the comment field,Unknown - Patient states they do not know rxn details Low 05/01/2011 liver joint pain, muscle pain, elevated liver enzymes statins Sulfacetamide Itching,Hives,Unkno wn - Patient states they do not know rxn details Medium 11/26/2012 Tramadol Itching,Hives,Unkno wn - Patient states they do not know rxn details Medium 05/01/2011 Ultram Medications * This document contains information received from the source organization and may not represent a complete record from that organization. choline fenofibrate (Trilipix) [address] capsule TAKE 1 CAPSULE Daily 04/01/2019 Active cranberry conc-ascorbic acid 140-100-3 MG-MG-UNIT capsule TAKE 4200 MG Daily 04/01/2019 Active cyanocobalamin (Vitamin B-12) 2500 MCG tablet TAKE 1 TABLET 3 times a week 04/01/2019 Active cyclobenzaprine (Flexeril) 5 MG tablet TAKE 1 TABLET 3 TIMES DAILY NEEDED. 01/14/2020 Active ezetimibe (Zetia) 10 MG tablet Take 1 tablet daily 06/20/2020 Active ibuprofen 600 MG tablet 01/14/2020 Active losartan (Cozaar) 25 MG tablet Take 1 tablet daily 06/13/2020 Active Lutein 20 MG capsule TAKE 1 CAPSULE Daily 04/01/2019 Active metFORMIN (Glucophage) 500 MG tablet TAKE 1 TABLET DAILY. 06/20/2020 Active montelukast (Singulair) 10 MG tablet Take 1 tablet daily 04/01/2019 Active Nutritional Supplements (Silica) 12.5 MG capsule TAKE 2 CAPSULE Twice daily 04/01/2019 Active pantoprazole (Protonix) 40 MG EC tablet Take 1 tablet daily 01/12/2020 Active triamterene-hydr ochlorothiazide (Maxzide) 75-50 MG tablet TAKE 0.5 TABLET 3 times a week 04/01/2019 Active warfarin (Coumadin) 5 MG tablet TAKE 1 TABLET Every other day Sat-Sat-Sat03/21/2020 Active warfarin (Coumadin) 2.5 MG tablet TAKE 1 TABLET Every other day Our-Hkxd-Pcj rs-Sat 06/27/2020 Active Active Problems Problem Noted Date Diagnosed Date Status post placement of implantable loop record er 09/11/2019 Cryptogenic stroke 04/01/2019 Palpitations 04/01/2019 Hypoesthesia 03/25/2019 Perioral numbness 03/25/2019 Transient ischemic attack 03/05/2019 Essential hypertension 10/10/2017 Hyperlipidemia 10/10/2017 Immunizations Immunization Administration Dates Next Due Hep A, Unspecified 01/10/2018 Influenza, Unspecified 01/02/2018,2016,12/18/2015,2014,12/10/2013,12/18/2012,12/17/2011 Influenza, injectable, quadr ivalent, preservative free 11/28/2018 PPD Skin Test (TB Skin Test) 08/11/2013, 08/26/2012,08/27/2011,2011,01/10/2009,12/22/2007,03/18/2007,1 03/11/2005,01/16/2005,09/21/2003, 003,12/15/2001 Tdap 11/02/2011 Family History Medical History Relation Name Comments Stroke Brother Stroke Mother Relation Name Status Comments Brother Mother Social History Tobacco Use Types Packs/Day Years Used Date Smoking Tobacco: Every Day Comments Unknown Sex and Gender Information Value Date Recorded Sex Assigned at Not on file Legal Sex Female 7:49 PM EDT Gender Identity Not on file Sexual Orientation Not on file Last Filed Vital Signs Vital Sign Reading Time Taken Comments Blood Pressure 147/70 06/27/2020 1:32 PM EDT Pulse 77 06/27/2020 1:32 PM EDT Temperature - - Respiratory Rate - - Oxygen Saturation - - Inhaled Oxygen Concentration - - Weight 69.8 kg (153 lb 14.1 oz) 06/27/2020 1:32 PM EDT Height 167.6 cm (5' 6 ) 06/27/2020 1:32 PM EDT Body Mass Index 24.84 06/27/2020 1:32 PM EDT Plan of Treatment Health Maintenance Due Date Last Done Comments [facility]-Bone Density Scan 1955 [facility]-Depression Screening 1956 [facility]-Hepatitis C Screening 1955 [facility]-Medicare Annual Wellness (AWV) 1955 [facility]-/Child/Adol SDOH Screenings 1956 [facility]- SDOH Screenings 1974 [facility]-Adult SDOH Screenings 1974 CT Colonography 2001 Colonoscopy 2001 FIT-DNA 2001 FIT 2001 FOBT 2001 Sigmoidoscopy 2001 [facility]-Colorectal Cancer Screening 2001 [facility]-Breast Cancer Screening 2006 [facility]-Pneumococcal Vaccine: 50+ Years (1 of 1 - PCV) 2006 [facility]-Zoster Vaccines (1 of 2) 2006 [facility]-DTaP,Tdap,and Td Vaccines (2 - Td or Tdap) 11/01/2021 11/02/2011 [id number] Vaccine ( season) 2023 12/26/2021, 01/12/2021, 05/12/2020 [facility]-Influenza Vaccine (Season Ended) 2024 12/13/2021, 12/14/2020, 12/11/2019, Additional history exists [facility]-RSV Vaccine: 60+ Years or (1 - 1-dose 75+ series) 08/15/2031 [facility]-Hepatitis A Vaccines Aged Out 01/10/2018 No longer eligible based on patient's age to complete this topic HPV Vaccines Aged Out No longer eligi ble based on patient's age to complete this topic [facility]-HIB Vaccines Aged Out No longer e ligible based on patient's age to complete this topic [facility]-IPV Vaccines Aged Out No longer e ligible based on patient's age to complete this topic [facility]-Rotavirus Vaccines Aged Out No lo nger eligible based on patient's age to complete this topic Medical Devices Implanted Type Area Fashion Designer Device Identifier Shelf Expiration Date Model / Serial / Lot [id number] Lnq11 Reveal Linq [id number] Implanted:2019 (Quantity not on file) Pacemaker Medtronic LNQ11 REVEAL LINQ / [id number] / Insurance MEDICARE
[2024-08-19 15:24] LABS: PHA INR Fingerstick 2.6 (0.9-1.1)
== END 2024-08-19 15:26 ==
LOC: ACC 14:54
PROVIDERS: PCP Family Medicine; Visit Provider Physician Assistant
DX: I48.0 Paroxysmal atrial fibrillation (principal); Z86.73 Personal history of transient ischemic attack (TIA), and cerebral infarction without residual deficits
CPT/HCPCS: 85610; 99211; G0463

== ENCOUNTER 2024-09-30 14:56 | Outpatient (CLI) | payer MEDICARE, SELFPAY ==
--- OUTSIDE RECORDS SUMMARY | 2024-09-30 14:59 | XMS_ITS | Clinical Summary ---
Author Organization Healthcare Address [address] [place] [address] Care Team Providers Care Cardroom Manager Name Role Phone Unavailable Primary Care Provider [...] tablet TAKE 1 TABLET Every other day Omh-Xzgn-Tgd rs-Sat 06/27/2020 Active Active Problems Problem Noted [...] (2 - Td or Tdap) 11/01/2021 11/02/2011 [id number] Vaccine ( season) 2023 12/26/2021, 01/12/2021, 05/12/2020 [facility]-Influenza Vaccine (#1) 11/02/202412/13, 12/14/2020, 12/11/2019, Additional history exists [facility]-RSV Vaccine: [...] this topic Medical Devices Implanted Type Area Electric Truck Operator Device Identifier Shelf Expiration Date Model / Serial / Lot [id number] Lnq11 Reveal Linq [id number] Implanted:2019 (Quantity not on file) Pacemaker Medtronic LNQ11 REVEAL LINQ / [id number] / Insurance MEDICARE
[2024-09-30 15:57] LABS: PHA INR Fingerstick 2.9 (0.9-1.1)
== END 2024-09-30 16:23 ==
LOC: ACC 14:57
PROVIDERS: PCP Family Medicine; Visit Provider Physician Assistant
DX: I48.0 Paroxysmal atrial fibrillation (principal); Z86.73 Personal history of transient ischemic attack (TIA), and cerebral infarction without residual deficits
CPT/HCPCS: 85610; 99211; G0463

== ENCOUNTER 2024-11-11 14:49 | Outpatient (CLI) | payer MEDICARE, SELFPAY ==
--- OUTSIDE RECORDS SUMMARY | 2024-11-11 14:53 | XMS_ITS | Clinical Summary ---
Author Organization Healthcare Address [address] [place] [address] Care Team Providers Care Mechanical Engineering Specialist Name Role Phone Unavailable Primary Care Provider [...] tablet TAKE 1 TABLET Every other day Elf-Ldyg-Kvc rs-Sat 06/27/2020 Active Active Problems Problem Noted [...] Screening 1955 [facility]-Medicare Annual Wellness (AWV) 1955 [facility]-Infant/Child/Adol SDOH Screenings 1956 [facility]- SDOH Screenings 1974 [facility]-Adult SDOH Screenings 1974 CT Colonography 2001 Colonoscopy 2001 FIT-DNA 2001 FIT 2001 FOBT 2001 Sigmoidoscopy 2001 [facility]-Colorectal Cancer Screening 2001 [facility]-Breast Cancer Screening 2006 [facility]-Pneumococcal Vaccine: 50+ Years (1 of 1 - PCV) 2006 [facility]-Zoster Vaccines (1 of 2) 2006 [facility]-RSV Vaccine: 60+ Years or (1 - Risk 60-74 years 1-dose series) 2016 [facility]-DTaP,Tdap,and Td Vaccines (2 - Td or Tdap) 11/01/2021 11/02/2011 [id number] Vaccine (4 - 2025-26 season) 2024 12/26/2021, 01/12/2021, 05/12/2020 [facility]-Influenza Vaccine (#1) 11/02/202412/13, 12/14/2020, 12/11/2019, Additional history exists [facility]-Hepatitis A Vaccines Aged Out 01/10/2018 No [...] this topic Medical Devices Implanted Type Area Blankmaker Device Identifier Shelf Expiration Date Model / Serial / Lot [id number] Lnq11 Reveal Linq [id number] Implanted:2019 (Quantity not on file) Pacemaker Medtronic LNQ11 REVEAL LINQ / [id number] / Insurance MEDICARE
[2024-11-11 16:01] LABS: PHA INR Fingerstick 2.9 (0.9-1.1)
== END 2024-11-11 16:02 ==
LOC: ACC 14:50
PROVIDERS: PCP Family Medicine; Visit Provider Physician Assistant
DX: I48.0 Paroxysmal atrial fibrillation (principal); Z79.01 Long term (current) use of anticoagulants; Z86.73 Personal history of transient ischemic attack (TIA), and cerebral infarction without residual deficits
CPT/HCPCS: 85610; 99211; G0463

== ENCOUNTER 2024-12-21 14:58 | Outpatient (CLI) | payer MEDICARE, SELFPAY ==
--- NOTE | 2024-12-21 15:15 | MR_ITS ---
FINAL REPORT TECHNIQUE: Multiplanar MR without contrast CLINICAL HISTORY: pain, arm weakness tingling in on plantar surface of feet COMPARISON: None FINDINGS: The vertebral heights are normal. Marrow signal pattern is unremarkable. There is minimal levoscoliosis at the thoracolumbar junction. Thoracic spinal cord shows a normal MR appearance. No significant disc disease is appreciated. There is no canal stenosis present. IMPRESSION: Minimal levoscoliosis of the thoracolumbar junction, otherwise unremarkable MR evaluation thoracic spine Reviewed, Interpreted and Dictated by Rahul Cosby MD Transcribed by Tanna Gamez Authenticated and . [facility]
--- NOTE | 2024-12-21 16:00 | MR_ITS ---
FINAL REPORT TECHNIQUE: Multiplanar MR without gadolinium enhancement CLINICAL HISTORY: neck pain, locking and popping pt stated neck will catch and she will be unable to lift up head she was also in traction x 1 month for PT COMPARISON: None FINDINGS: Limited images of the posterior fossa are unremarkable. Alignment is normal. Cervical spinal cord shows normal signal and contour. C2-3: Unremarkable C3-4: Mild left facet osteoarthropathy is noted, without significant neural foraminal narrowing or canal stenosis. C4-5: A mild annular present with mild facet overgrowth and mild bilateral neural foraminal narrowing. C5-6: Mild facet overgrowth is present without evidence of significant canal stenosis or neural foraminal narrowing. C6-7: A mild annular bulge is present without evidence of significant canal stenosis or neural foraminal narrowing. C7-T1: Unremarkable IMPRESSION: Mild degenerative changes present in the cervical spine, without significant central canal stenosis. Reviewed, Interpreted and Dictated by Rahul Cosby MD Transcribed by Tanna Gamez Authenticated and . [facility]
== END 2024-12-21 23:59 | disposition home or self-care (01) ==
LOC: RAD 14:59
PROVIDERS: PCP Family Medicine; Visit Provider Family Medicine
DX: M47.812 Spondylosis without myelopathy or radiculopathy, cervical region (principal); M41.85 Other forms of scoliosis, thoracolumbar region; M54.6 Pain in thoracic spine; M54.50 Low back pain, unspecified; R29.898 Other symptoms and signs involving the musculoskeletal system; R20.2 Paresthesia of skin; Z86.73 Personal history of transient ischemic attack (TIA), and cerebral infarction without residual deficits
CPT/HCPCS: 72141; 72146

== ENCOUNTER 2024-12-23 13:29 | Outpatient (CLI) | payer MEDICARE, SELFPAY ==
--- NOTE | 2024-12-23 13:45 | MR_ITS ---
FINAL REPORT TECHNIQUE: Multiplanar MR without contrast CLINICAL HISTORY: pain, paresthesia both feet FINDINGS: Sagittal images show normal vertebral height. There is minimal retrolisthesis of L5 on S1. Marrow signal pattern is unremarkable. T12-L1: Unremarkable L1-2: Unremarkable L2-3: Unremarkable L3-4: Unremarkable L4-5: Minimal annular disc bulge and mild facet arthropathy. L5-S1: Mild annular disc bulge. Mild facet arthropathy and mild neuroforaminal narrowing. IMPRESSION: Degenerative disc disease in the lower lumbar spine. Reviewed, Interpreted and Dictated by Rahul Cosby MD Transcribed by Padmini Patricio Authenticated and . [facility]
[2024-12-23 15:30] LABS: PHA INR Fingerstick 3.2 (0.9-1.1)
== END 2024-12-23 15:28 ==
PROVIDERS: Physician Assistant; PCP Family Medicine; Visit Provider Family Medicine
DX: M47.816 Spondylosis without myelopathy or radiculopathy, lumbar region (principal); I48.0 Paroxysmal atrial fibrillation; M54.2 Cervicalgia; M54.6 Pain in thoracic spine; R20.2 Paresthesia of skin; Z86.73 Personal history of transient ischemic attack (TIA), and cerebral infarction without residual deficits
CPT/HCPCS: 72148; 85610; 99211; G0463

== ENCOUNTER 2024-12-25 09:49 | Outpatient (CLI) | payer MEDICARE, SELFPAY ==
--- OUTSIDE RECORDS SUMMARY | 2024-12-25 09:51 | XMS_ITS | Clinical Summary ---
Author Organization Healthcare Address [address] [place] [address] Care Team Providers Care Shingle Cutter Name Role Phone Unavailable Primary Care Provider [...] tablet TAKE 1 TABLET Every other day Ohl-Yhwo-Ayi rs-Sat 06/27/2020 Active Active Problems Problem Noted [...] (2 - Td or Tdap) 11/01/2021 11/02/2011 [id number] Vaccine (4 - 2025-26 season) 2024 12/26/2021, [...] this topic Medical Devices Implanted Type Area Supervisor Curing Room Device Identifier Shelf Expiration Date Model / Serial / Lot [id number] Lnq11 Reveal Linq [id number] Implanted:2019 (Quantity not on file) Pacemaker Medtronic LNQ11 REVEAL LINQ / [id number] / Insurance MEDICARE
[2024-12-25 10:28] LABS: Hematocrit 36.8 % (37.0-47.0); Hemoglobin 11.5 g/dL (12.2-16.2); Immature Granulocytes % 0.3 %; Mean Corpuscular HGB Conc 31.3 g/dL (31.8-35.4); Mean Corpuscular Hemoglobin 27.8 pg (27.0-31.2); Mean Corpuscular Volume 88.9 fl (81-99); Nucleated Red Blood Cells % 0 %; Platelet Count 399 K/mm3 (142-424); Red Blood Count 4.14 M/mm3 (4.20-5.40); Red Cell Distribution Width-SD 49.1 fL; White Blood Count 8.8 K/mm3 (4.8-10.8)
[2024-12-25 11:11] LABS: Albumin Level 4.0 g/dl (3.5-5.0); Chloride 107 mmol/L (98-107)
[2024-12-25 11:12] LABS: Potassium 4.4 mmoL/L (3.5-5.1); Sodium 137 mmol/L (136-145)
[2024-12-25 11:14] LABS: Alanine Aminotransferase 28 U/L (12-78); Alkaline Phosphatase 87 U/L (38-126); Anion Gap 10.4 mEq/L (5-15); Aspartate Amino Transferase 39 U/L (14-36); Bilirubin,Total 0.2 mg/dl (0.2-1.3); Blood Urea Nitrogen 21 mg/dl (7-17); Carbon Dioxide 24 mmol/L (22.0-30.0); Creatinine,Serum 1.10 mg/dl (0.52-1.04); Estimated Glomerular Filt Rate 49 ml/min (>60); GFR (African American) 60 ML/MIN (>60)
[2024-12-25 11:15] LABS: Albumin/Globulin Ratio 1.2 (1.1-1.8); Calcium 9.2 mg/dl (8.4-10.2); Cholesterol 236 mg/dl (140-200); Globulin 3.4 g/dL (1.3-3.2); Glucose 104 mg/dl (74-100); HDL Cholesterol 32 mg/dl (40-60); Total Protein,Serum 7.4 g/dl (6.3-8.2); Triglycerides 354 mg/dl (30-150)
[2024-12-25 11:54] LABS: Hemoglobin A1C 6.3 % (4.0-6.0)
== END 2024-12-25 23:59 | disposition home or self-care (01) ==
LOC: LAB 09:50
PROVIDERS: PCP Family Medicine; Visit Provider Family Medicine
DX: E78.2 Mixed hyperlipidemia (principal); K76.0 Fatty (change of) liver, not elsewhere classified; R20.2 Paresthesia of skin; I10 Essential (primary) hypertension
CPT/HCPCS: 36415; 80053; 80061; 82172; 82247; 82465; 82947; 82977; 83010; 83036; 83521; 84450; 84460; 84478; 85025

== ENCOUNTER 2025-01-13 14:39 | Outpatient (CLI) | payer MEDICARE, SELFPAY ==
--- OUTSIDE RECORDS SUMMARY | 2025-01-13 14:41 | XMS_ITS | Clinical Summary ---
Author Organization Healthcare Address [address] [place] [address] Care Team Providers Care Electronics Installer Name Role Phone Unavailable Primary Care Provider [...] tablet TAKE 1 TABLET Every other day Ekn-Mqgz-Nvx rs-Sat 06/27/2020 Active Active Problems Problem Noted [...] (2 - Td or Tdap) 11/01/2021 11/02/2011 [id number] Vaccine (4 - 2025-26 season) 2024 12/26/2021, [...] this topic Medical Devices Implanted Type Area Sorting Livestock Worker Device Identifier Shelf Expiration Date Model / Serial / Lot [id number] Lnq11 Reveal Linq [id number] Implanted:2019 (Quantity not on file) Pacemaker Medtronic LNQ11 REVEAL LINQ / [id number] / Insurance MEDICARE
[2025-01-13 14:59] LABS: PHA INR Fingerstick 2.3 (0.9-1.1)
== END 2025-01-13 15:01 ==
LOC: ACC 14:39
PROVIDERS: PCP Family Medicine; Visit Provider Physician Assistant
DX: I48.0 Paroxysmal atrial fibrillation (principal); Z79.01 Long term (current) use of anticoagulants; Z86.73 Personal history of transient ischemic attack (TIA), and cerebral infarction without residual deficits
CPT/HCPCS: 85610; 99211; G0463

== ENCOUNTER 2025-02-17 14:55 | Outpatient (CLI) | payer MEDICARE, SELFPAY ==
[2025-02-17 15:26] LABS: PHA INR Fingerstick 2.5 (0.9-1.1)
--- OUTSIDE RECORDS SUMMARY | 2025-02-17 16:09 | XMS_ITS | Clinical Summary ---
Author Organization Healthcare Address [address] [place] [address] Care Team Providers Care Male Infertility Specialist Name Role Phone Unavailable Primary Care [...] tablet TAKE 1 TABLET Every other day Cpz-Lwmn-Fpa rs-Sat 06/27/2020 Active Active Problems Problem Noted [...] [facility]-Bone Density Scan 1956 [facility]-Depression Screening 1956 [facility]-Infant/Child/Adol SDOH Screenings 1956 [facility]- SDOH Screenings 1974 [facility]-Adult SDOH Screenings 1974 CT Colonography 2001 Colonoscopy 2001 FIT-DNA 2001 FIT 2001 FOBT 2001 Sigmoidoscopy 2001 [facility]-Colorectal Cancer Screening 2001 [facility]-Pneumococcal Vaccine: 50+ Years (1 of 1 - PCV) 2006 [facility]-Zoster Vaccines (1 of 2) 2006 [facility]-DTaP,Tdap,and Td Vaccines (2 - Td or Tdap) 11/01/2021 11/02/2011 [id number] Vaccine ( - season) 2024 12/26/2021, 01/12/2021, 05/12/2020 [facility]-Influenza Vaccine (#1) 11/02/202412/13, 12/14/2020, 12/11/2019, Additional history exists [facility]-RSV Vaccine: 60+ Years or (1 - 1-dose 75+ series) 08/15/2031 [facility]-Hepatitis A Vaccines Aged Out 01/10/2018 No longer eligible based on patient's age to complete this topic HPV Vaccines (No Doses Required) Completed [facility]-HIB Vaccines Aged Out No longer e ligible based on patient's age to complete this topic [facility]-IPV Vaccines Aged Out No longer e ligible based on patient's age to complete this topic [facility]-Rotavirus Vaccines Aged Out No lo nger eligible based on patient's age to complete this topic Medical Devices Implanted Type Area Service Member Device Identifier Shelf Expiration Date Model / Serial / Lot [id number] Lnq11 Reveal Linq [id number] Implanted:2019 (Quantity not on file) Pacemaker Medtronic LNQ11 REVEAL LINQ / [id number] / Insurance MEDICARE
== END 2025-02-17 15:34 ==
LOC: ACC 14:56
PROVIDERS: PCP Family Medicine; Visit Provider Physician Assistant
DX: I48.0 Paroxysmal atrial fibrillation (principal); Z79.01 Long term (current) use of anticoagulants
CPT/HCPCS: 85610; 99211; G0463